=== PATIENT | male | born 1985 | race Caucasian/White ===

== ENCOUNTER 2017-02-17 16:41 | Emergency (ER) | payer OTHER, MEDICAID ==
[~2017-02-17] VITALS: Ht 182.9 cm; Wt 104.4 kg
[2017-02-17 16:49] VITALS: BP 137/83
[2017-02-17 20:05] LABS: BASOPHILS # (AUTO) 0.3 K/uL (0.00-0.22); EOSINOPHILS # (AUTO) 0.1 K/uL (0-0.4); HEMATOCRIT 45.4 % (36-52); HEMOGLOBIN 14.8 g/dL (12.0-18.0); LYMPHOCYTES # (AUTO) 2.3 K/uL (2.0-11.5); MEAN CORPUSCULAR HEMOGLOBIN 30 pg (27-31); MEAN CORPUSCULAR HGB CONC 33 g/dL (33-37); MEAN CORPUSCULAR VOLUME 93 fL (80-94); MONOCYTES # (AUTO) 0.7 K/uL (0.8-1.0); NEUTROPHILS # (AUTO) 4.5 K/uL (1.8-7.7); PLATELET COUNT (AUTO) 299 K/uL (140-450); WHITE BLOOD COUNT (AUTO) 7.9 K/uL (4.8-10.8)
--- NOTE | 2017-02-17 20:08 | NUR ---
PT TAKEN TO CT
[2017-02-17 20:14] LABS: ANION GAP 14.1 (8-16); CARBON DIOXIDE 26.1 mmol/L (21-32); CREATININE 1.2 mg/dL (0.7-1.3); POTASSIUM 4.2 mmol/L (3.5-5.1)
[2017-02-17 20:20] LABS: ALBUMIN 4.5 g/dL (3.4-5.0); TOTAL BILIRUBIN 0.3 mg/dL (0.0-1.0)
--- NOTE | 2017-02-17 20:52 | NUR ---
PT TAKEN TO BED 7
--- NOTE | 2017-02-17 20:54 | NUR ---
31Y M BIB SELF C/O GENERALIZED ABOMINAL PAIN X TODAY---SEVERE NAUSEA, WATERY STOOL ---NO EMESIS. PT STATES IT STARTED THIS MORNING PAIN 6/10, RADIATING TO BILAT LOWER BACK. PT AAOX4. BREATHING IS UNLABORED AND CLEAR BILAT. HX----COLON RESECTION 2010, HTN, SCHIZOPHRENIA, ANXIETY RX----DEPAKOTE,
--- NOTE | 2017-02-17 20:55 | NUR ---
Dr. Taylor evaluating patient at bedside.
[2017-02-17] MEDS ORDERED: DICYCLOMINE 20 MG/2 ML VIAL IM ONE (21:00)
[2017-02-17] MEDS ORDERED: MAGNESIUM CITRATE 300 ML BTL PO ONE (21:15)
[2017-02-17 21:27] VITALS: BP 122/79
--- NOTE | 2017-02-17 21:27 | NUR ---
Patient discharged with v/s stable. Written and verbal after care instructions given and explained. Patient alert, oriented and verbalized understanding of instructions. Ambulatory with steady gait. All questions addressed prior to discharge. ID band removed. Patient advised to follow up with PMD. Rx of BENTYL 20MG AND MIRALAX given. Patient educated on indication of medication including possible reaction and side effects. Opportunity to ask questions provided and answered.
== END 2017-02-17 21:27 | disposition home or self-care (01) ==
LOC: MED 16:41
DX: K59.00 Constipation, unspecified (principal); I10 Essential (primary) hypertension; Z91.041 Radiographic dye allergy status; Z88.6 Allergy status to analgesic agent; F17.210 Nicotine dependence, cigarettes, uncomplicated; Z71.6 Tobacco abuse counseling
CPT/HCPCS: 36415; 74176; 80053; 83690; 85025; 96372; 99285; J0500

== ENCOUNTER 2022-01-11 12:44 | Inpatient (IN) | payer OTHER, MEDICAID ==
[~2022-01-11] VITALS: Ht 177.8 cm; Wt 77.1 kg
[2022-01-11 12:52] VITALS: BP 140/91
[2022-01-11] MEDS ORDERED: ONDANSETRON 4 MG/2 ML VIAL IVP ONE ×2 (14:05→17:50)
[2022-01-11] MEDS ORDERED: KETOROLAC 15 MG/ML VIAL IVP ONE (14:05)
--- NOTE | 2022-01-11 14:19 | NUR ---
PT AMBULATED TO ER BED 7
--- NOTE | 2022-01-11 14:20 | NUR ---
PT TAKEN TO US VIA W/C
[2022-01-11] MEDS ORDERED: MORPHINE SULFATE 4 MG/ML SYR IVP ONE (14:55)
--- NOTE | 2022-01-11 14:55 | NUR ---
DR KIMBALL AT BEDSIDE EVALUATING PT, EXPLAINING PLAN OF CARE
[2022-01-11] MEDS ORDERED: fentaNYL citrate 0.05 MG/ML VIAL IVP ONE (15:00)
[2022-01-11] MEDS ORDERED: KETOROLAC 15 MG/ML VIAL ONE (15:14)
[2022-01-11] MEDS ORDERED: ONDANSETRON 4 MG/2 ML VIAL ONE (15:14)
--- NOTE | 2022-01-11 15:29 | NUR ---
DR SINGLETON AT BEDSIDE. PT HAS A SM BOWEL OBSTRUCTION
--- NOTE | 2022-01-11 15:39 | NUR ---
36YR OLD MALE C/O ABD PAIN SINCE 12/25. WAS SEEN LAST WEEK AT [facility]. PT STATES HAVING R SIDED ABD PAIN RADIATES TO R LOWER BACK PAIN. ULTRSOUND DONE AT BEDSIDE. 20G IV CATH STARTED L AC. PT A&OX4 PT IN GOWN. SIDE RAILS UP X2 BED AT LOWEST POSITION. IODINE TORADOL MORPHINE LORATAP
[2022-01-11 16:01] LABS: BASOPHILS % (AUTO) 0.7 % (0.0-2.0); EOSINOPHILS # (AUTO) 0.1 K/uL (0-0.4); EOSINOPHILS % (AUTO) 0.9 % (0.0-4.0); HEMATOCRIT 39.9 % (36-52); HEMOGLOBIN 13.5 g/dL (12.0-18.0); LYMPHOCYTES # (AUTO) 1.5 K/uL (2.0-11.5); LYMPHOCYTES % (AUTO) 21.8 % (20.5-51.1); MEAN CORPUSCULAR HEMOGLOBIN 32 pg (27-31); MEAN CORPUSCULAR HGB CONC 34 g/dL (33-37); MEAN CORPUSCULAR VOLUME 94.1 fL (80-94); MONOCYTES # (AUTO) 0.6 K/uL (0.8-1.0); MONOCYTES % (AUTO) 8.8 % (1.7-9.3); NEUTROPHILS # (AUTO) 4.7 K/uL (1.8-7.7); NEUTROPHILS % (AUTO) 67.8 % (42.2-75.2); PLATELET COUNT (AUTO) 448 K/uL (140-450); RED BLOOD CELL COUNT(AUTO) 4.24 MIL/uL (4.20-6.10); RED CELL DISTRIBUTION WIDTH 13.6 % (11.6-13.7)
--- NOTE | 2022-01-11 16:37 | NUR ---
PT IN BED RESTING . XRAY AT BEDSIDE. RESP EVEN AND UNLABORED
[2022-01-11 16:38] LABS: ANION GAP 13.8 (8-16); CARBON DIOXIDE 25.4 mmol/L (21-32); CREATININE 0.8 mg/dL (0.6-1.3); POTASSIUM 4.2 mmol/L (3.5-5.1)
[2022-01-11] MEDS ORDERED: HYDROmorphone PFS 2 MG/ML SYR IVP ONE (17:30)
--- NOTE | 2022-01-11 17:33 | NUR ---
PATIENT UNAWARE OF MEDS TAKEN DAILY. WAS GIVEN PERMISSION FROM PATIENT TO CONTACT RJ FROM THE PRISON AND REQUEST HIS THE MEDICIANS AND DOSAGE
[2022-01-11 17:38] LABS: TOTAL BILIRUBIN 0.2 mg/dL (0.0-1.0)
[2022-01-11 17:54] LABS: APPEARANCE,URINE CLEAR (CLEAR); BILIRUBIN,URINE NEGATIVE (NEGATIVE); BLOOD, URINE NEGATIVE (NEGATIVE); COLOR,URINE YELLOW (YELLOW); LEUKOCYTE ESTERASE ,URINE NEGATIVE (NEGATIVE); NITRITE, URINE NEGATIVE (NEGATIVE); UGLUCOSE NEGATIVE (NEGATIVE)
[2022-01-11] MEDS ORDERED: guaiFENesin DM 200/20 MG-10 ML 10 ML UDC PO PRN (18:20)
[2022-01-11] MEDS ORDERED: MORPHINE SULFATE 2 MG/ML SYR IVP PRN (18:20)
[2022-01-11] MEDS ORDERED: DOCUSATE SODIUM 100 MG GELCAP PO PRN (18:20)
[2022-01-11] MEDS ORDERED: POTASSIUM CHLORIDE 40 MEQ, LIDOCAINE MPF 1% 25 MG in NACL 0.9% 250 ML IV PRN (18:20)
[2022-01-11] MEDS ORDERED: ZOLPIDEM 5 MG TAB PO PRN (18:20)
[2022-01-11] MEDS ORDERED: GABA400C PO (18:58)
[2022-01-11] MEDS ORDERED: RISP0.5T3 PO (18:59)
[2022-01-11] MEDS ORDERED: NAPR-1704 PO (19:00)
[2022-01-11] MEDS ORDERED: QUET100T PO (19:01)
[2022-01-11] MEDS ORDERED: TRAZ-471 PO (19:02)
[2022-01-11] MEDS ORDERED: ESK300 PO (19:03)
[2022-01-11] MEDS ORDERED: PRED20TA5 PO (19:04)
[2022-01-11] MEDS ORDERED: ATOR40TA PO (19:05)
--- NOTE | 2022-01-11 19:05 | NUR ---
MED RECONCILE AND COVID SWAB COMPLETED
[2022-01-11 19:48] LABS: AMYLASE 86 U/L (25-115); CHOL/HDL RATIO 2.3 (1-4.5); FREE T4 (FREE THYROXINE) 0.79 ng/dL (0.76-1.46); HDL CHOLESTEROL 40 mg/dL (40-60); LDL (CALC) 43 mg/dL (60-100); MAGNESIUM 1.8 mg/dL (1.8-2.4); PHOSPHORUS 5.4 mg/dL (2.5-4.9); THYROID STIMULATING HORMONE 2.45 uIU/mL (0.34-3.74); TRIGLYCERIDES 49 mg/dL (30-150)
--- NOTE | 2022-01-11 21:00 | NUR ---
Patient appears to be resting comfortably in bed. Vital Signs within normal limits. Respirations even and unlabored.
[2022-01-11] MEDS: DEXT 5% /NACL 0.9% 1,000 ML IV SCH (21:31)
[2022-01-11] MEDS: HYDROmorphone 1 MG/ML AMP IVP PRN (21:41)
--- NOTE | 2022-01-11 22:03 | NUR ---
PT EXPRESSED SOB WITH 02 95% RA, PLACED ON 2L NC, PATIEND EXPRESSED IMPROVEMENT 02 97%
--- NOTE | 2022-01-11 22:07 | NUR ---
PATIENT GIVEN DILAUDID 1MG FOR ABD PAIN 01/05, PATIENT HAS INCREASED ACTIVITY AND VERY TALKITIVE AFTER MEDICATION ADMINISTRATION.
--- NOTE | 2022-01-11 22:13 | NUR ---
XRAY AT BEDSIDE
[2022-01-11] MEDS ORDERED: DIAZEPAM PFS 10 MG/2 ML SYR IVP ONE ×2 (22:55→23:10)
--- NOTE | 2022-01-11 23:47 | NUR ---
PT EXPRESSED HE COULD NOT SLEEP. PT GIVEN DIAZAPAM
--- NOTE | 2022-01-11 23:56 | NUR ---
PT NOW RESTING COMFORTABLY. VS STABLE. VISABLE RISE AND FALL OF CHEST, NO LABORED BREATING
--- NOTE | 2022-01-12 | NUR ---
PT AWAKE C/O OF NOT BEING ABLE TO SLEEP
--- NOTE | 2022-01-12 01:30 | NUR ---
PT RESTING IN BED TALKING ON THE PHONE
--- NOTE | 2022-01-12 04:00 | NUR ---
RECEIVED PT IN ER BED 7. PT A/O X4, C/O 10/10 PAIN AND REQUESTING MORE PAIN MEDICATION. PT WAS MEDICATED WITH AMBIEN PRIOR TO MY ARRIVAL. PT ATTACHED TO AEGIS OPERATIONS SPECIALIST, VSS. WILL MEDICATE PER PRN ORDERS.
[2022-01-12] MEDS: DEXT 5% /NACL 0.9% 1,000 ML IV SCH ×3 (04:03→19:53)
[2022-01-12 04:26] LABS: PROTHROMBIN TIME 13.1 secs (10.8-13.4)
[2022-01-12] MEDS: HYDROmorphone 1 MG/ML AMP IVP PRN ×3 (05:37→19:47)
[2022-01-12 07:25] LABS: BASOPHILS # (AUTO) 0.1 K/uL (0.00-0.22); BASOPHILS % (AUTO) 1.2 % (0.0-2.0); EOSINOPHILS # (AUTO) 0.1 K/uL (0-0.4); EOSINOPHILS % (AUTO) 2.8 % (0.0-4.0); HEMATOCRIT 38.5 % (36-52); HEMOGLOBIN 13.1 g/dL (12.0-18.0); LYMPHOCYTES # (AUTO) 1.8 K/uL (2.0-11.5); LYMPHOCYTES % (AUTO) 37.2 % (20.5-51.1); MEAN CORPUSCULAR HEMOGLOBIN 32 pg (27-31); MEAN CORPUSCULAR HGB CONC 34 g/dL (33-37); MEAN CORPUSCULAR VOLUME 93.7 fL (80-94); MONOCYTES # (AUTO) 0.5 K/uL (0.8-1.0); MONOCYTES % (AUTO) 10.5 % (1.7-9.3); NEUTROPHILS # (AUTO) 2.3 K/uL (1.8-7.7); NEUTROPHILS % (AUTO) 48.3 % (42.2-75.2); PLATELET COUNT (AUTO) 384 K/uL (140-450); RED BLOOD CELL COUNT(AUTO) 4.11 MIL/uL (4.20-6.10); RED CELL DISTRIBUTION WIDTH 13.7 % (11.6-13.7); WHITE BLOOD COUNT (AUTO) 4.7 K/uL (4.8-10.8)
[2022-01-12 08:05] LABS: ANION GAP 13.9 (8-16); CARBON DIOXIDE 25.4 mmol/L (21-32); CREATININE 0.9 mg/dL (0.6-1.3); POTASSIUM 4.3 mmol/L (3.5-5.1)
--- NOTE | 2022-01-12 08:24 | NUR ---
36YR OLD MALE C/O ABD PAIN SINCE 12/25. SEEN HERE YESTERDAY ON A TELE HOLD. PENDING BED ASSIG. PT IS A&OX4. PT IS STATING PAIN 04/07. DILUAD Q3 NO PAIN MEDS SCHEDULED AT THIS TIME. PT IS VERBALLY EXPRESSIVE TO STAFF ON MULTIPLE SUBJECTS OTHER THAN HIS C/O. ON BEDSIDE MONITOR . PT IS NPO. 20G L AC. BEDRAILS UP X1 BED AT LOWEST POSITION
--- NOTE | 2022-01-12 11:45 | NUR ---
DR BINGHAM SPOKE WITH PATIENT AT BEDSIDE. ON A CLEAR LIQUID DIET . PT TOLERATED 240CC OF CRANBERRY JUICE. PT IS RESTING ON MONITOR. PENDING DC HOME
--- NOTE | 2022-01-12 17:43 | NUR ---
PT IS SLEEPING . RESP EVEN AND UNLABORED. PENDING BED STATUS.
[2022-01-12] MEDS: ONDANSETRON 4 MG/2 ML VIAL IM/IVP PRN (19:53)
--- NOTE | 2022-01-12 19:56 | NUR ---
PT C/O PAIN AND NAUSEA. PT STATES PAIN 10/10. PT HOOKED UP TO MONITOR. CHARGE NURSE TO GIVE ZOFRAN AND PAIN MEDS IV. WILL CONTINUE TO MONITOR
--- NOTE | 2022-01-12 21:07 | NUR ---
pt sleeping comfortably. x2 side rails up
--- NOTE | 2022-01-12 22:22 | NUR ---
Patient will be admitted to care of DR. BINGHAM . Admited to TELE. Will go to room 111 B. Belongings list completed. Report to LASHAE.
--- NOTE | 2022-01-12 22:25 | NUR ---
RECEIVED PATIENT FROM EMERGENCY DEPARTMENT, ADMITTED TO THE UNIT VIA GURNEY. AWAKE, ALERT AND VERBALLY RESPONSIVE. SKIN INTACT, DRY AND WARM. BILATERAL LUNGS SOUND CLEAR. PATIENT DENIED OF SHORTNESS OF BREATHING. IV SALINE LOCK PRESENT AT LEFT AC, INTACT AND PATENT. NO SIGN/SYMPTOM OF SWELLING OR REDNESS ON SKIN SURROUNDING IV SALINE LOCK. PATIENT IS ON CLEAR LIQUID DIET. PATIENT DENIED OF PAIN AT THIS TIME, NO FACIAL GRIMACING. PLACE PATIENT AND ORIENT HIM TO SURROUNDING ROOM.
[2022-01-13] VITALS: BP 110/69
[2022-01-13] MEDS: HYDROmorphone 1 MG/ML AMP IVP PRN ×3 (03:23→19:00)
--- NOTE | 2022-01-13 03:23 | NUR ---
PT COMPLAINTS OF ABDOMINAL PAIN OF 8/10, PAIN MEDICATION, DILAUDID, ADMINISTERED ORDERED.
[2022-01-13] MEDS: DEXT 5% /NACL 0.9% 1,000 ML IV SCH ×3 (03:40→17:45)
[2022-01-13 04:00] VITALS: BP 110/69
--- NOTE | 2022-01-13 04:23 | NUR ---
PT IS ASLEEP, NO FACIAL GRIMACING.
--- NOTE | 2022-01-13 06:26 | NUR ---
The patient's care was reviewed and supervised by Sena Goddard RN.
[2022-01-13 07:07] LABS: BASOPHILS % (AUTO) 0.6 % (0.0-2.0); EOSINOPHILS # (AUTO) 0.2 K/uL (0-0.4); EOSINOPHILS % (AUTO) 3.3 % (0.0-4.0); HEMATOCRIT 37.5 % (36-52); HEMOGLOBIN 12.6 g/dL (12.0-18.0); LYMPHOCYTES # (AUTO) 1.8 K/uL (2.0-11.5); LYMPHOCYTES % (AUTO) 35.2 % (20.5-51.1); MEAN CORPUSCULAR HEMOGLOBIN 32 pg (27-31); MEAN CORPUSCULAR HGB CONC 34 g/dL (33-37); MEAN CORPUSCULAR VOLUME 93.5 fL (80-94); MONOCYTES # (AUTO) 0.5 K/uL (0.8-1.0); MONOCYTES % (AUTO) 9.5 % (1.7-9.3); NEUTROPHILS # (AUTO) 2.7 K/uL (1.8-7.7); NEUTROPHILS % (AUTO) 51.4 % (42.2-75.2); PLATELET COUNT (AUTO) 373 K/uL (140-450); RED CELL DISTRIBUTION WIDTH 13.3 % (11.6-13.7); WHITE BLOOD COUNT (AUTO) 5.2 K/uL (4.8-10.8)
[2022-01-13 07:14] LABS: ANION GAP 11.3 (8-16); CARBON DIOXIDE 26.6 mmol/L (21-32); CREATININE 0.7 mg/dL (0.6-1.3); POTASSIUM 3.9 mmol/L (3.5-5.1)
--- NOTE | 2022-01-13 07:20 | NUR ---
IV FLUID IS INTACT AND PATENT, NO SIGN/SYMPTOM OF INFECTION.
--- NOTE | 2022-01-13 07:20 | NUR ---
PT IS ON STABLE CONDITION. ENDORSED TO DAY SHIFT NURSE FOR CONTINUITY OF PT CARE.
--- NOTE | 2022-01-13 07:25 | NUR ---
RECEIVED REPORT FROM NEWSPAPER SUBSCRIPTION SOLICITOR NURSE FOR CONTINUITY OF CARE. PATIENT ASLEEP NO DISTRESS NOTED ON ROOM AIR. IV ON LEFT AC CONNIE 20 RUNNING D5NS AT 120 CC/HOUR NO FLUID OVER LOAD NOTED. ALL SAFETY MEASURE IN PLACE.
[2022-01-13 08:00] VITALS: BP 110/78
--- NOTE | 2022-01-13 08:39 | NUR ---
IVF IS DONE. HANG NEW IV FLUID PATIENT ALERT REFUSED TO EAT DIET ORDER.
--- NOTE | 2022-01-13 08:44 | NUR ---
PATIENT HAS BEEN SCREENED AND CATEGORIZED HIGH NUTRITION RISK. PATIENT WILL BE SEEN WITHIN 1-2 DAYS OF ADMISSION. 01/13/[address]
--- NOTE | 2022-01-13 08:44 | NUR ---
DR. BINGHAM AT BED SIDE.
--- NOTE | 2022-01-13 11:20 | NUR ---
REESE HWANG CHIEF PASSENGER SHIP STEWARD/STEWARDESS OF [facility] FOR PATIENT CALLED REGARDING PATIENT CONDITION GIVE INSTRUCTION THAT IF PATIENT IS GOING TO HAVE ANY SURGURY WE NEED TO CONTACT MARK HWANG SOCIAL RAILCAR SWITCHER FOR PATIENT.
[2022-01-13 12:00] VITALS: BP 100/72
--- NOTE | 2022-01-13 12:28 | NUR ---
RIGHT AC IV SITED INFILTRATED ARM SWELLING. REMOVE IV AND INSERT ON RIGHT FOREARM CONNIE 22 X1 ATTEMPT. TOLERATED WELL.
--- NOTE | 2022-01-13 13:57 | NUR ---
PATIENT IS COMPLAIN OF BLURRED VISION BUT WHEN I GO THERE HE SAID ITS BECAUSE HE DON'T TAKE HIS HOME MEDICATION AND WANT DOCTOR TO RESUME IT. LEFT MESSAGE TO DR. BINGHAM.
--- NOTE | 2022-01-13 14:25 | NUR ---
PATIENT IS COMPLAINING FOR NAUSEA INFORM RN.
[2022-01-13] MEDS: ONDANSETRON 4 MG/2 ML VIAL IM/IVP PRN ×2 (14:34→19:59)
--- NOTE | 2022-01-13 14:55 | NUR ---
DC PLANNING: THE PATIENT PRESENTED WITH C/O ABDOMINAL PAIN WITH N/V. HE RESIDES AT [facility] IN [place] AND HAS BEEN THERE FOR A FEW MONTHS. H/O HTN, PATIENT ALSO STATES HE IS SCHIZOPHRENIC WITH PARANOIA. PATIENT ALSO HAS A H/O RECURRENT SBO AND HAD A SURGICAL CONSULT IN THE ED. CT ABD/PELVIS CONFIRMS SBO WITH DILATED SMALL BOWEL LOOPS, DR SINGLETON RECOMMENDS CONSERVATIVE RX, NPO AND IVF'S, SMALL BOWEL SERIES. ORDERS TO ADVANCE DIET TO CL LIQUID. DALILA SPOKE WITH THE PATIENT AT BEDSIDE AND CONFIRMED THE NAME AND ADDRESS OF HIS CORRECTION. HE HAS BEEN THERE FOR A FEW MONTHS AND HAS BEEN AT MULTIPLE GROUP HOMES IN THE PAST. THERE ARE TWO ADMINISTRATORS, [facility] ([phone]) AND [facility] ([phone]). EITHER CAN BE CALLED FOR TRANSPORT WHEN PATIENT IS STABLE FOR DISCHARGE. THE PATIENT IS INDEPENDENT IN ALL ACTIVITIES AND STATES HE AMBULATES INSIDE OF THE HOME AND IN THE YARD. HE SEES DR CAVAZOS FOR PSYCHIATRIC MANAGEMENT AND SEES HIS PMD DR RODRIGUEZ EVERY 2-3 MONTHS. HIS [facility] CENTER WORKER IS MARK HWANG ([phone]). THE PATIENT WILL RETURN TO HIS [facility] WHEN CLINICALLY STABLE, CM WILL FOLLOW FOR NEEDS. Addendum: 01/14/22 at 1113 by Keke Laguna CM DC PLANNING: PATIENT TO DC TO [facility] TODAY PER ATTENDING DALILA CONDE ENDORSED TO PATIENT NURSE CAROLINA TO CALL THE NUMBERS LISTED IN DALILA'S NOTES FOR THE ADMINISTRATORS TO SET UP TRANSPORT. CM WILL FOLLOW.
--- NOTE | 2022-01-13 15:54 | NUR ---
01/13/22 RD INITIAL ASSESSMENT COMPLETED PLEASE REFER TO NUTRITION ASSESSMENT UNDER CARE ACTIVITY FOR ESTIMATED NUTRITIONAL NEEDS. 1. CONTINUE CLEAR LIQUID DIET -WHEN/IF MEDICALLY APPROPRIATE, GRADUALLY ADVANCE TO REGULAR DIET TOLERATED 2. RECOMMEND ENSURE CLEAR TID FOR NUTRITION SUPPORT 3. RD TO FOLLOW-UP 2-3 DAYS, HIGH RISK RUDOLPH BEATTY RD
[2022-01-13 16:00] VITALS: BP 98/76
[2022-01-13] MEDS ORDERED: risperiDONE 1 MG TAB PO SCH (17:00)
[2022-01-13] MEDS ORDERED: GABAPENTIN 100 MG CAP PO SCH (17:00)
[2022-01-13 17:16] LABS: BARBITURATE, URINE NEGATIVE ng/ml (NEG <=200); BENZODIAZEPINE, URINE POSITIVE ng/mL (NEG <=200); CANNABINOID, URINE NEGATIVE ng/mL (NEG <=50); COCAINE, URINE NEGATIVE ng/mL (NEG <=300); OPIATE, URINE POSITIVE ng/mL (NEG <=2000); PHENCYCLIDINE SCREEN,URINE NEGATIVE ng/mL (NEG <=25)
[2022-01-13] MEDS: GABAPENTIN 300 MG CAP PO SCH (17:39)
[2022-01-13] MEDS: GABAPENTIN 100 MG CAP PO SCH (17:40)
--- NOTE | 2022-01-13 19:40 | NUR ---
GAVE REPORT TO HYDRAULIC SPECIALIST NURSE FOR CONTINUITY OF CARE. PATIENT AWAKE NO DISTRESS NOTED.
--- NOTE | 2022-01-13 19:45 | NUR ---
RECEIVED BEDSIDE REPORT FROM DAY SHIFT RN FOR CONTINUITY OF CARE. PT IS AWAKE IN BED. PT IS ALERT AND ORIENTATED. PT HAS RIGHT FOREARM 22 GAUGE WITH D5% NS 120 CC/HR. PT STATED HE HAD A BM TODAY. PT COMPLAINING OF NAUSEA. WILL MEDICATE PER MD ORDER. PT STATES OF FEELING DIZZINESS. EDUCATED PT TO CALL FOR HELP IF AMBULATING TO THE RESTROOM. PLAN OF CARE DISCUSSED. WILL CONTINUE TO OBSERVE THE PT.
[2022-01-13 20:00] VITALS: BP 118/75
[2022-01-13] MEDS ORDERED: traZODone 50 MG TAB PO SCH (21:00)
[2022-01-13] MEDS ORDERED: ATORVASTATIN 20 MG TAB PO SCH (21:00)
[2022-01-13] MEDS ORDERED: QUEtiapine FUMARATE 100 MG TAB PO SCH (21:00)
--- NOTE | 2022-01-13 21:00 | NUR ---
ALL DUE MEDS GIVEN. NO ADVERSE REACTION NOTED. WILL CONTINUE TO OBSERVE PT.
--- NOTE | 2022-01-13 22:19 | NUR ---
PT COMPLAINED OF BACK PAIN 04/07. GAVE DILAUDID PRN ORDERED. NO OTHER COMPLAINS. WILL CONTINUE TO OBSERVE PT.
[2022-01-14] MEDS: HYDROmorphone 1 MG/ML AMP IVP PRN (00:43)
--- NOTE | 2022-01-14 00:57 | NUR ---
PT IS SLEEPING IN BED COMFORTABLY. PT IS NOT IN ANY ACUTE RESPIRATORY DISTRESS. IVF RUNNING PER MD ORDER. CALL LIGHT WITHIN REACH. ALL SAFETY MEASURES TAKEN. WILL CONTINUE TO MONITOR THE PT.
[2022-01-14] MEDS: DEXT 5% /NACL 0.9% 1,000 ML IV SCH ×2 (01:59→13:00)
--- NOTE | 2022-01-14 02:05 | NUR ---
CHANGED IVF FLUIDS. PT WANTED SOME ORANGE JUICE AND IT WAS GIVEN REQUESTED. NO OTHER COMPLAINS FROM THE PT. WILL CONTINUE TO OBSERVE THE PT.
[2022-01-14 04:00] VITALS: BP 99/59
--- NOTE | 2022-01-14 07:12 | NUR ---
ENDORSED PT TO DAY SHIFT LAZ FORBES FOR CONTINUITY OF CARE. PT IS STABLE.
[2022-01-14 07:18] LABS: ANION GAP 11.2 (8-16); CARBON DIOXIDE 25.7 mmol/L (21-32); CREATININE 0.7 mg/dL (0.6-1.3); POTASSIUM 3.9 mmol/L (3.5-5.1)
[2022-01-14 07:21] LABS: BASOPHILS % (AUTO) 0.8 % (0.0-2.0); EOSINOPHILS # (AUTO) 0.1 K/uL (0-0.4); EOSINOPHILS % (AUTO) 2.8 % (0.0-4.0); HEMATOCRIT 36.5 % (36-52); HEMOGLOBIN 12.5 g/dL (12.0-18.0); LYMPHOCYTES # (AUTO) 2.1 K/uL (2.0-11.5); LYMPHOCYTES % (AUTO) 45.3 % (20.5-51.1); MEAN CORPUSCULAR HEMOGLOBIN 32 pg (27-31); MEAN CORPUSCULAR HGB CONC 34 g/dL (33-37); MEAN CORPUSCULAR VOLUME 92.6 fL (80-94); MONOCYTES # (AUTO) 0.5 K/uL (0.8-1.0); MONOCYTES % (AUTO) 10.7 % (1.7-9.3); NEUTROPHILS # (AUTO) 1.8 K/uL (1.8-7.7); NEUTROPHILS % (AUTO) 40.4 % (42.2-75.2); PLATELET COUNT (AUTO) 355 K/uL (140-450); RED BLOOD CELL COUNT(AUTO) 3.94 MIL/uL (4.20-6.10); WHITE BLOOD COUNT (AUTO) 4.5 K/uL (4.8-10.8)
[2022-01-14 08:00] VITALS: BP 104/53
--- NOTE | 2022-01-14 08:16 | NUR ---
RECEIVE ENDORSEMENT FROM PM SHIFT NURSE WHILE PATIENT IS REST IN BED, PIV R.FOREARM 22G IV D5NS@120ML/HR INFUSING. WILL CONTINUE TO MONITOR
[2022-01-14] MEDS: GABAPENTIN 300 MG CAP PO SCH ×2 (09:09→13:00)
[2022-01-14] MEDS: GABAPENTIN 100 MG CAP PO SCH ×2 (09:10→13:00)
[2022-01-14] MEDS ORDERED: NAPR-1704 PO (12:06)
[2022-01-14] MEDS ORDERED: METO-485 PO (12:06)
[2022-01-14 12:09] VITALS: BP 151/74
--- NOTE | 2022-01-14 14:20 | NUR ---
CALL PATIENT'S FRIEND, SWAPNIL, . IJ AGREE TO COME SEWER CONTRACTOR PATIENT. PATIENT STABLE, CONSENT SIGNED, IV ACCESS & ARM BAND REMOVED.
--- NOTE | 2022-01-14 15:18 | NUR ---
PATIENT'S FRIEND HERE AND HOUSE CALLS NURSE PRACTITIONER PATIENT NOW.
[2022-01-14] MEDS ORDERED: LITHIUM CARBONATE 300 MG TAB PO SCH (21:00)
== END 2022-01-14 15:00 | disposition home or self-care (01) | DRG 390 ==
LOC: MED 12:44 → MTU 17:49
PROVIDERS: ADMIT Family Medicine; ATTEND Family Medicine
DX: K56.609 Unspecified intestinal obstruction, unspecified as to partial versus complete obstruction (principal); E86.0 Dehydration; I10 Essential (primary) hypertension; Z20.822 Contact with and (suspected) exposure to COVID-19; F10.10 Alcohol abuse, uncomplicated; Y90.9 Presence of alcohol in blood, level not specified; K70.30 Alcoholic cirrhosis of liver without ascites; Z88.5 Allergy status to narcotic agent; Z88.8 Allergy status to other drugs, medicaments and biological substances; Z88.6 Allergy status to analgesic agent; Z91.041 Radiographic dye allergy status; Z79.899 Other long term (current) drug therapy; Z90.49 Acquired absence of other specified parts of digestive tract
CPT/HCPCS: 36415; 71045; 74250; 76705; 80048; 80053; 80178; 80305; 81003; 82150; 83036; 83690; 83735; 83880; 84100; 84436; 84439; 84443; 84479; 84484; 85025; 85610; 85730; 87081; 93005; 96374; 96375; 99285; J1170; J1885; J2270; J2405; J3010; J3360; Q0092

== ENCOUNTER 2022-03-17 18:02 | Inpatient (IN) | payer OTHER, MEDICAID ==
[~2022-03-17] VITALS: Ht 185.4 cm; Wt 87.1 kg
[~2022-03-17 18:02] MED LIST: ATOR40TA PO; ESK300 PO; GABA400C PO; METO-485 PO; NAPR-1704 PO; PRED20TA5 PO; QUET100T PO; RISP0.5T3 PO; TRAZ-471 PO
[2022-03-17 18:24] VITALS: BP 112/72
--- NOTE | 2022-03-17 18:33 | NUR ---
AT BEDSIDE, GEORGE FOR LOBBY. PT TO WAIT IN ED LOBBY FOR BED.
[2022-03-17 19:43] LABS: BASOPHILS # (AUTO) 0.1 K/uL (0.00-0.22); BASOPHILS % (AUTO) 0.7 % (0.0-2.0); EOSINOPHILS # (AUTO) 0.2 K/uL (0-0.4); EOSINOPHILS % (AUTO) 2.8 % (0.0-4.0); HEMATOCRIT 48.1 % (36-52); HEMOGLOBIN 16.1 g/dL (12.0-18.0); LYMPHOCYTES # (AUTO) 1.9 K/uL (2.0-11.5); LYMPHOCYTES % (AUTO) 24.3 % (20.5-51.1); MEAN CORPUSCULAR HEMOGLOBIN 32 pg (27-31); MEAN CORPUSCULAR HGB CONC 34 g/dL (33-37); MEAN CORPUSCULAR VOLUME 93.9 fL (80-94); MONOCYTES # (AUTO) 0.9 K/uL (0.8-1.0); MONOCYTES % (AUTO) 11.4 % (1.7-9.3); NEUTROPHILS # (AUTO) 4.8 K/uL (1.8-7.7); NEUTROPHILS % (AUTO) 60.8 % (42.2-75.2); PLATELET COUNT (AUTO) 295 K/uL (140-450); RED BLOOD CELL COUNT(AUTO) 5.12 MIL/uL (4.20-6.10); RED CELL DISTRIBUTION WIDTH 14.7 % (11.6-13.7); WHITE BLOOD COUNT (AUTO) 7.8 K/uL (4.8-10.8)
[2022-03-17 20:09] LABS: ALBUMIN 4.5 g/dL (3.4-5.0); ASPARTATE AMINOTRANSFERASE 12 U/L (15-37); CARBON DIOXIDE 18.9 mmol/L (21-32); CHLORIDE 106 mmol/L (98-107); CREATININE 1.5 mg/dL (0.6-1.3); GFR ARICAN-AMERICAN 68 mL/min (>90); GLUCOSE 131 mg/dL (74-106); POTASSIUM 4.9 mmol/L (3.5-5.1); SODIUM SERUM 140 mmol/L (136-145); TOTAL BILIRUBIN 0.4 mg/dL (0.0-1.0); UREA NITROGEN, BLOOD 23 mg/dL (7-18)
[2022-03-17] MEDS ORDERED: NACL 0.9% 1,000 ML IV ONE (21:30)
--- NOTE | 2022-03-18 01:41 | NUR ---
COVID SWAB COLLECTED AND SENT TO LAB
--- NOTE | 2022-03-18 02:49 | NUR ---
36YR OLD MALE C/O PALPATIONS DENIES SOB CP AND DRUG USE. PT ON BEDSIDE KILN STOKER. 20GIV CATH PLACED IN L FOREARM. PT IS RESTING HOB ELEVATED. RESP EVEN AND UNLABORED. SKIN WARM DRY AND INTACT. SIDE RAILS UP X2 BED AT LOWEST POSITION. ACETAMINOPHEN HYDROCODONE IODINE SM BOWEL OBSTRUCTION ANXIETY DEPRESSION
--- NOTE | 2022-03-18 03:31 | NUR ---
PATIENT ASLEEP . ON BEDSIDE CARIDAC MONITOR. RESP EVEN AND UNLABORED. NO DISTRESS NOTED. PENDING BED AVAIL FOR TELE.
--- NOTE | 2022-03-18 03:32 | NUR ---
PATIENT ASLEEP . ON BEDSIDE CARIDAC MONITOR. RESP EVEN AND UNLABORED. NO DISTRESS NOTED. PENDING BED AVAIL FOR TELE.
[2022-03-18 09:30] VITALS: BP 127/79
--- NOTE | 2022-03-18 09:30 | NUR ---
0730: COMPUTER SYSTEM DOWN. RECEIVED REPORT FROM ROLLER INSPECTOR AND MENDER. PT A/O X4. ABLE TO MAKE NEEDS KNOWN. TELE, SR. NO SOB OR RESPIRATORY DISTRESS. ON RA. LFA #22 SL. SKIN INTACT. MRSA OF NARES TAKEN AND SENT TO LAB. EXPLAINED TO PT OF COMPUTER SYSTEM BEING DOWN AND ORIENTED PT TO ROOM. PT VERBALIZED UNDERSTANDING. ALL NEEDS MET. ALL SAFETY MEASURES IN PLACE.
[2022-03-18] MEDS ORDERED: NITROGLYCERIN 0.4 MG TAB SL PRN (10:00)
[2022-03-18] MEDS ORDERED: guaiFENesin DM 200/20 MG-10 ML 10 ML UDC PO PRN (10:00)
[2022-03-18] MEDS ORDERED: DOCUSATE SODIUM 100 MG GELCAP PO PRN (10:00)
[2022-03-18] MEDS ORDERED: POTASSIUM CHLORIDE 10 MEQ TABER PO PRN (10:00)
[2022-03-18] MEDS ORDERED: ONDANSETRON 4 MG/2 ML VIAL IM/IVP PRN (10:00)
--- NOTE | 2022-03-18 10:17 | NUR ---
PATIENT HAS BEEN SCREENED AND CATEGORIZED LOW NUTRITION RISK. PATIENT WILL BE SEEN WITHIN 7 DAYS OF ADMISSION. 03/25/[address]
--- NOTE | 2022-03-18 10:30 | NUR ---
CONTACTED WINDOWS APPLICATION ADMINISTRATOR AND CHARGE NURSE REGARDING NO IV PUMP. WINDOWS APPLICATION ADMINISTRATOR STATES WILL DELIVER. AWAITING IV PUMP.
--- NOTE | 2022-03-18 11:00 | NUR ---
DRUG SCREEN/UA SENT TO LAB.
[2022-03-18 12:00] VITALS: BP 104/65
[2022-03-18] MEDS: NACL 0.9% 1,000 ML IV SCH (12:00)
[2022-03-18 12:29] LABS: PROTHROMBIN TIME 10.9 secs (10.8-13.4)
[2022-03-18 12:48] LABS: FREE T4 (FREE THYROXINE) 0.81 ng/dL (0.76-1.46); MAGNESIUM 1.6 mg/dL (1.8-2.4); PHOSPHORUS 4.3 mg/dL (2.5-4.9); THYROID STIMULATING HORMONE 1.08 uIU/mL (0.34-3.74)
[2022-03-18] MEDS: GABAPENTIN 100 MG CAP PO SCH ×2 (13:09→16:52)
[2022-03-18 13:12] LABS: APPEARANCE,URINE SL CLOUDY (CLEAR); BILIRUBIN,URINE NEGATIVE (NEGATIVE); BLOOD, URINE NEGATIVE (NEGATIVE); COLOR,URINE YELLOW (YELLOW); LEUKOCYTE ESTERASE ,URINE NEGATIVE (NEGATIVE); NITRITE, URINE NEGATIVE (NEGATIVE); UGLUCOSE NEGATIVE (NEGATIVE)
[2022-03-18 13:21] LABS: BARBITURATE, URINE NEGATIVE ng/ml (NEG <=200); BENZODIAZEPINE, URINE NEGATIVE ng/mL (NEG <=200); CANNABINOID, URINE POSITIVE ng/mL (NEG <=50); COCAINE, URINE NEGATIVE ng/mL (NEG <=300); OPIATE, URINE NEGATIVE ng/mL (NEG <=2000); PHENCYCLIDINE SCREEN,URINE NEGATIVE ng/mL (NEG <=25)
--- NOTE | 2022-03-18 14:50 | NUR ---
CONTACTED MD REGARDING PT C/O NUMBNESS AND TINGLING ON L SIDE OF BODY. NO FACIAL DROOPING NOTED. DEPTH PERCEPTION INTACT. PUPILS PERRLA. 3MM. NO SLURRING. PT STATES, "THIS HAPPENS TO ME WHEN I'M IN A LOT OF PAIN". PT ALSO STATES, "IT HAPPENED TO ME BEFORE ON MY RIGHT SIDE BEFORE AND IT WENT AWAY". CONTACTED OF [facility]. AWAITING MD RESPONSE. Addendum: 03/18/22 at 1816 by Agency 05 LAZ RN CONTACTED MD REGARDING PT C/O NUMBNESS AND TINGLING ON L SIDE OF BODY. PT STATES HIS LEFT HAND IS "CLENCHED AND WILL NOT OPEN". PT NOTED WITH L HAND CLOSED FIST. PULSES STRONG, BILATERALLY EQUAL. NO FACIAL DROOPING NOTED. DEPTH PERCEPTION INTACT. PUPILS PERRLA. 3MM. NO SLURRING. PT STATES, "THIS HAPPENS TO ME WHEN I'M IN A LOT OF PAIN". PT ALSO STATES, "IT HAPPENED TO ME BEFORE ON MY RIGHT SIDE BEFORE AND IT WENT AWAY". CONTACTED OF [facility]. AWAITING MD RESPONSE.
[2022-03-18 16:00] VITALS: BP 103/70
[2022-03-18] MEDS: risperiDONE 1 MG TAB PO SCH (16:52)
[2022-03-18] MEDS ORDERED: ATORVASTATIN 20 MG TAB PO SCH (17:00)
--- NOTE | 2022-03-18 17:45 | NUR ---
ELECTRIC MOTOR AND GENERATOR ASSEMBLER AT BEDSIDE. PT STATES, "LOOK, I CAN OPEN MY HAND". PT STATES RELIEF OF SCHEDULED GABAPENTIN. NO NUMBNESS OR TINGLING. PT RELAXED. IN NO ACUTE DISTRESS. PT STATES, "I'M HUNGRY". EXPLAINED DINNER TRAY DELIVERY TIME. PT VERBALIZED UNDERSTANDING. NEEDS ALL MET AT THIS TIME. ALL SAFETY MEASURES IN PLACE.
--- NOTE | 2022-03-18 19:27 | NUR ---
REPORT GIVEN TO NIGHTSHIFT NURSEWILBER FOR CONTINUITY OF CARE. PT STABLE WITH DINNER TRAY AT BEDSIDE.
--- NOTE | 2022-03-18 19:28 | NUR ---
RECEIVED PT TO MORNING SHIFT NURSE. PT IS AOX4, AMBULATORY, ABLE TO VERBALIZE NEEDS AND ABLE TO FOLLOW COMMANDS. PT IS ON ROOM AIR QND ON CARDIAC DIET. PT HAS IV ON LEFT FOREARM GAUGE 22 RUNNING WITH NS AT 60. PT SKIN IS INTACT. ALL SAFETY MEASURES IMPLEMENTED. BED WHEELS ON LOCKED, BED IN LOW POSITION AND CALL LIGHT WITHIN REACH.
[2022-03-18 20:00] VITALS: BP 105/67
[2022-03-18] MEDS: traZODone 50 MG TAB PO SCH (21:13)
[2022-03-18] MEDS: METOPROLOL 25 MG TAB PO SCH (21:16)
[2022-03-18] MEDS: QUEtiapine FUMARATE 100 MG TAB PO SCH (21:16)
--- NOTE | 2022-03-18 21:16 | NUR ---
ALL SCHEDULED AND PRESCRIBED MEDICATION WAS GIVEN TO PT PER MD ORDER. PT TOLERATED IT WELL. ALL SAFETY MEASURES IMPLEMENTED. BED WHEELS ON LOCKED, BED IN LOW POSITION AND CALL LIGHT WITHIN REACH.
[2022-03-18] MEDS: ZOLPIDEM 5 MG TAB PO PRN (21:23)
--- NOTE | 2022-03-18 21:23 | NUR ---
PT WAS GIVEN PRN SLEEPING MEDICATION PER PT REQUEST. PT TOLERATED IT WELL. ALL SAFETY MEASURES IMPLEMENTED. BED WHEELS ON LOCKED, BED IN LOW POSITION AND CALL LIGHT WITHIN REACH.
--- NOTE | 2022-03-18 21:47 | NUR ---
PT DENIES THAT HE IS ALLERGIC TO NORCO/MORPHINE. DR. BINGHAM ORDER NORCO 5MG Q6H PRN AND TAKE OUT THE ALLERGY TO THE SYSTEM IF THE PT DENIES IT. ORDER WAS MADE AND CARRIED OUT.
--- NOTE | 2022-03-18 23:00 | NUR ---
PT WAS ASKING FOR SNACK. EDUCATE THE PT FOR THE DIET. PT VERBALIZE UNDERSTANDING. ALL SAFETY MEASURES IMPLEMENTED. BED WHEELS ON LOCK, BED IN LOW POSITION AND CALL LIGHT WITHIN REACH.
[2022-03-19] VITALS: BP 101/68
--- NOTE | 2022-03-19 02:00 | NUR ---
PT IS SLEEPING. CHEST RISE AND FALL SYMMETRICALLY NOTED. RESPIRATION IS EVEN AND UNLABORED. ALL SAFETY MEASURES IMPLEMENTED. BED WHEELS ON LOCK, BED IN LOW POSITION AND CALL LIGHT WITHIN REACH.
[2022-03-19] MEDS: NACL 0.9% 1,000 ML IV SCH ×2 (02:50→19:20)
--- NOTE | 2022-03-19 04:00 | NUR ---
CHECKED PT, STILL SLEEPING. CHEST RISE AND FALL SYMMETRICALLY NOTED. RESPIRATION IS EVEN AND UNLABORED SATING AT 96% WITH NORMAL SINUS RHYTHM. ALL SAFETY MEASURES IMPLEMENTED. BED WHEELS ON LOCK, BED IN LOW POSITION AND CALL LIGHT WITHIN REACH.
[2022-03-19 04:01] VITALS: BP 103/67
[2022-03-19 07:09] LABS: T4 (THYROXINE) 6.1 ug/dL (4.5-12.0)
--- NOTE | 2022-03-19 07:12 | NUR ---
PT IS STABLE. ENDORSED PT TO MORNING SHIFT NURSE FOR CONTINUITY OF CARE.
--- NOTE | 2022-03-19 07:30 | NUR ---
RECEIVED REPORT FROM [facility] NURSEWILBER. PT A/O X4. ABLE TO MAKE NEEDS KNOWN. NO SOB OR RESPIRATORY DISTRESS. ON RA. DENIES PAIN AT THIS TIME. NS @ 60 ML/HR ON LFA #22. ALL ITEMS WITHIN REACH. NEEDS ALL MET. ALL SAFETY MEASURES IN PLACE.
[2022-03-19 07:40] LABS: ANION GAP 12.3 (8-16); CARBON DIOXIDE 25.9 mmol/L (21-32); CREATININE 0.9 mg/dL (0.6-1.3); POTASSIUM 4.2 mmol/L (3.5-5.1)
[2022-03-19 07:47] LABS: BASOPHILS % (AUTO) 0.8 % (0.0-2.0); EOSINOPHILS # (AUTO) 0.2 K/uL (0-0.4); EOSINOPHILS % (AUTO) 4.5 % (0.0-4.0); HEMATOCRIT 38.4 % (36-52); HEMOGLOBIN 12.9 g/dL (12.0-18.0); LYMPHOCYTES # (AUTO) 2.3 K/uL (2.0-11.5); LYMPHOCYTES % (AUTO) 47.6 % (20.5-51.1); MEAN CORPUSCULAR HEMOGLOBIN 32 pg (27-31); MEAN CORPUSCULAR HGB CONC 34 g/dL (33-37); MEAN CORPUSCULAR VOLUME 94.9 fL (80-94); MONOCYTES # (AUTO) 0.5 K/uL (0.8-1.0); MONOCYTES % (AUTO) 10.7 % (1.7-9.3); NEUTROPHILS # (AUTO) 1.8 K/uL (1.8-7.7); NEUTROPHILS % (AUTO) 36.4 % (42.2-75.2); PLATELET COUNT (AUTO) 224 K/uL (140-450); RED BLOOD CELL COUNT(AUTO) 4.04 MIL/uL (4.20-6.10); RED CELL DISTRIBUTION WIDTH 14.8 % (11.6-13.7); WHITE BLOOD COUNT (AUTO) 4.8 K/uL (4.8-10.8)
[2022-03-19 08:00] VITALS: BP 94/71
[2022-03-19] MEDS: METOPROLOL 25 MG TAB PO SCH ×2 (08:55→20:06)
[2022-03-19] MEDS: GABAPENTIN 100 MG CAP PO SCH ×3 (08:56→16:32)
[2022-03-19] MEDS ORDERED: predniSONE 20 MG TAB PO SCH (09:00)
[2022-03-19] MEDS ORDERED: PANTOPRAZOLE 40 MG TABEC PO SCH (09:00)
[2022-03-19] MEDS ORDERED: LITHIUM CARBONATE 300 MG TAB PO SCH (09:00)
[2022-03-19] MEDS ORDERED: ECOTRIN 81 MG TABEC PO SCH (09:00)
[2022-03-19] MEDS ORDERED: MAGNESIUM OXIDE 400 MG TAB PO SCH (09:00)
[2022-03-19] MEDS ORDERED: lisinopriL 5 MG TAB PO SCH (09:00)
--- NOTE | 2022-03-19 10:00 | NUR ---
PT STATED LARGE BM LAST NIGHT. REQUESTING SALAD WITH EVERY TRAY DELIVERED. CALLED DIETARY WITH NO PICKUP. SPOKE WITH DIETARY IN PERSON AND REQUESTED SALAD WITH NON-FAT DRESSING WITH EVERY MEAL AND 1 NOW. ORDERS WRITTEN DOWN BY DIETARY. PROVIDED PT WITH SALAD. PT IN NO DISTRESS. NO SOB NOTED. ALL NEEDS MET AT THIS TIME. ALL SAFETY MEASURES IN PLACE.
[2022-03-19] MEDS: HYDROcodone/APAP 5/325 MG 1 TAB TAB PO PRN ×2 (11:00→16:33)
[2022-03-19 12:00] VITALS: BP 104/63
--- NOTE | 2022-03-19 12:00 | NUR ---
DC PLANNING SW MET WITH PT AT BEDSIDE TO COMPLETE ASSESSMENT. PATIENT REPORTS RESIDING AT A [facility] AT THE ADDRESS LISTED ON FILE. PATIENT IDENTIFIED MARK (SISTER) [phone] EMERGENCY CONTACT AND MDM. PATIENT REPORTS BEING [facility] CONNECTED, [facility], [facility], . PATIENT REPORTS LAST VISIT WITH PCP EARLY THIS MONTH. PT REPORTS MEDIATION COMPLIANCE AND REPORTS THAT RX AND MAILED TO THE [facility]. PATIENT REPORTS BEING INDEPENDENT IN ALL ACTIVITIES AND DENIES USE OF DME. PT STRUGGLED TO ANSWER IF HE HAD MENTAL HEALTH HX AND JUST SMILED. PT REPORTS SUBSTANCE USE HX, PRIMARY SUBSTANCE OF CHOICE; ALCOHOL, MARIJUANA, COCAINE AND LSD. PATIENT REPORTS HE HS BEEN SOBER "FOR A QUITE A WHILE". PATIENT DECLINED SUBSTANCE USE RESOURCES. PATIENT REPORTS LIMITED FAMILY SUPPORTS HIS MOTHERS PASSING 6 YRS AGO. PATIENT REPORTS HIS SISTER VISITS WITH HIM MONTHLY AND RESIDES FAIRLY CLOSE. DC PLAN IS FOR PATIENT TO RETURN TO WHEN CLINICALLY STABLE.
[2022-03-19] MEDS: diphenhydrAMINE 50 MG/ML VIAL IVP PRN (13:19)
--- NOTE | 2022-03-19 15:25 | NUR ---
PROVIDED PT WITH 2 SALADS WITH LOW FAT IRANIAN DRESSING PER REQUESTS. PT IN NO DISTRESS. ALL NEEDS MET. ALL SAFETY MEASURES IN PLACE.
[2022-03-19 16:00] VITALS: BP 104/63
[2022-03-19] MEDS: risperiDONE 1 MG TAB PO SCH (16:29)
--- NOTE | 2022-03-19 16:30 | NUR ---
PT RESTLESS. PT C/O ACHING HEADACHE. SEE PAIN ASSESSMENT AND EMAR FOR PAIN ADMINISTRATION.
--- NOTE | 2022-03-19 18:41 | NUR ---
PT ANXIOUS TO LEAVE. CONTACTED DR. BRYANT IF PT WAS CLEARED FOR DISCHARGE FROM HIS STANDPOINT AND DR. BRYANT STATES YES. CONTACTED DR. BINGHAM REGARDING CARDIO CLEARANCE AND DR. BINGHAM WOULD LIKE PT TO STAY ANOTHER NIGHT. WILL LET PT KNOW.
--- NOTE | 2022-03-19 19:07 | NUR ---
REPORT GIVEN TO NIGHTSMTFT NURSEWILBER FOR CONTINUITY OF CARE.
--- NOTE | 2022-03-19 19:08 | NUR ---
RECEIVED PT TO MORNING SHIFT NURSE. PT IS AOX4, AMBULATORY, ABLE TO VERBALIZE NEEDS AND ABLE TO FOLLOW COMMANDS. PT IS ON ROOM AIR AND ON CARDIAC DIET. PT HAS SALINE LOCK ON LEFT FOREARM GAUGE 22 WITH STAND BY NS AT 60. PT WANTS TO DISCONNECT THE NS NOW BECAUSE HE FEEL IRRITATED BY ITCHING BUT THE MORNING NURSE TOLD ME THAT SHE WAS ALREADY GAVE THE PT BENADRYL FOR ITCHING. PT WANTS TO GO HOME AND AGREED TO ME THAT HE WILL STAY FOR 1 NIGHT WHAT DOCTOR'S ORDER. PT SKIN IS INTACT. ALL SAFETY MEASURES IMPLEMENTED. BED WHEELS ON LOCKED, BED IN LOW POSITION AND CALL LIGHT WITHIN REACH
[2022-03-19 20:00] VITALS: BP 105/68
[2022-03-19] MEDS: QUEtiapine FUMARATE 100 MG TAB PO SCH (20:17)
[2022-03-19] MEDS: traZODone 50 MG TAB PO SCH (20:17)
--- NOTE | 2022-03-19 20:43 | NUR ---
PT IS COMPLAINING OF NAUSEA. PRN ANTI-NAUSEA MEDICATION WAS GIVEN TO PT PER MD ORDER. PT TOLERATED IT WELL. ALL SAFETY MEASURES IMPLEMENTED. BED WHEELS ON LOCKED, BED IN LOW POSITION AND CALL LIGHT WITHIN REACH.
[2022-03-19] MEDS ORDERED: ATORVASTATIN 20 MG TAB PO SCH (21:00)
[2022-03-19] MEDS: ZOLPIDEM 5 MG TAB PO PRN (21:45)
--- NOTE | 2022-03-19 21:45 | NUR ---
PT WAS GIVEN SLEEPING MEDICATION PER PT REQUEST. PT TOLERATED IT WELL. ALL SAFETY MEASURES IMPLEMENTED. BED WHEELS ON LOCKED, BED IN LOW POSITION AND CALL LIGHT WITHIN REACH.
[2022-03-20] VITALS: BP 99/58
--- NOTE | 2022-03-20 | NUR ---
PT IS SLEEPING. CHEST RISE AND FALL SYMMETRICALLY NOTED. RESPIRATION IS EVEN AND UNLABORED. NO S/S OF RESPIRATORY DISTRESS. ALL SAFETY MEASURES IMPLEMENTED. BED WHEELS ON LOCKED, BED IN LOW POSITION AND CALL LIGHT WITHIN REACH.
[2022-03-20] MEDS: diphenhydrAMINE 50 MG/ML VIAL IVP PRN (01:49)
--- NOTE | 2022-03-20 01:49 | NUR ---
PT WAS GIVEN BENADRYL PER PT REQUEST. PT TOLERATED IT WELL. ALL SAFETY MEASURES IMPLEMENTED. BED WHEELS ON LOCKED, BED IN LOW POSITION AND CALL LIGHT WITHIN REACH.
[2022-03-20 04:00] VITALS: BP 107/64
[2022-03-20] MEDS: HYDROcodone/APAP 5/325 MG 1 TAB TAB PO PRN (04:04)
--- NOTE | 2022-03-20 04:04 | NUR ---
PT WAS GIVEN PRN PAIN MEDICATION DUE TO BACK PAIN WITH THE PAIN SCALE OF 6/10. ALL SAFETY MEASURES IMPLEMENTED. BED WHEELS ON LOCKED, BED IN LOW POSITION AND CALL LIGHT WITHIN REACH.
--- NOTE | 2022-03-20 07:22 | NUR ---
PT IS STABLE. ENDORSE PT TO MORNING SHIFT NURSE FOR CONTINUITY OF CARE.
--- NOTE | 2022-03-20 07:23 | NUR ---
CONTACTED DR MARCUS REGARDING PT WANTS TO LEAVE AMA, STATED HE WOULD NOT WAIT AND HAS PSYCH DR APPOINTMENT AT 3 AND HAS TO PAY BILLS AND HE WANTS TO GO HOME NOW.
--- NOTE | 2022-03-20 07:23 | NUR ---
RECEIVED BEDSIDE REPORT FROM GRAPHIC ARTIST NURSE, PT AGITATED STATED HE WANTS TO GO HOME. ALERT ORIENTED ABLE TO LET NEEDS KNOWN. PT ON ROOM AIR, IV TO LEFT AC 22G PATENT INTACT, SL. PT REFUSED IV FLUID. INITIAL ASSESSMENT DONE, ALL SAFETY PRECAUTION MET, CALL LIGHT WITHIN REACH, WILL CONTINUE TO MONITOR.
[2022-03-20 07:35] LABS: BASOPHILS % (AUTO) 0.5 % (0.0-2.0); EOSINOPHILS # (AUTO) 0.2 K/uL (0-0.4); EOSINOPHILS % (AUTO) 3.8 % (0.0-4.0); HEMATOCRIT 39.9 % (36-52); HEMOGLOBIN 13.5 g/dL (12.0-18.0); LYMPHOCYTES # (AUTO) 2.4 K/uL (2.0-11.5); LYMPHOCYTES % (AUTO) 44.3 % (20.5-51.1); MEAN CORPUSCULAR HEMOGLOBIN 32 pg (27-31); MEAN CORPUSCULAR HGB CONC 34 g/dL (33-37); MEAN CORPUSCULAR VOLUME 94.1 fL (80-94); MONOCYTES # (AUTO) 0.7 K/uL (0.8-1.0); MONOCYTES % (AUTO) 13.3 % (1.7-9.3); NEUTROPHILS # (AUTO) 2.1 K/uL (1.8-7.7); NEUTROPHILS % (AUTO) 38.1 % (42.2-75.2); PLATELET COUNT (AUTO) 228 K/uL (140-450); RED BLOOD CELL COUNT(AUTO) 4.24 MIL/uL (4.20-6.10); RED CELL DISTRIBUTION WIDTH 14.6 % (11.6-13.7); WHITE BLOOD COUNT (AUTO) 5.5 K/uL (4.8-10.8)
[2022-03-20 08:00] VITALS: BP 111/75
[2022-03-20 08:00] LABS: ANION GAP 15.6 (8-16); CARBON DIOXIDE 22.5 mmol/L (21-32); CREATININE 0.9 mg/dL (0.6-1.3); POTASSIUM 4.1 mmol/L (3.5-5.1)
--- NOTE | 2022-03-20 08:00 | NUR ---
DC PAPERS SIGNED, PT STATED UNDERSTANDING, ALL QUESTIONS ANSWERED, IV TAKEN OUT, CATH INTACT. WRIST BAND TAKEN OFF.
--- NOTE | 2022-03-20 08:15 | NUR ---
WALKED PT TO FRONT LOBBY THEN TO ER LOBBY TO WAIT FOR UBER. PT IN STABLE CONDITION.
--- NOTE | 2022-03-25 13:58 | NUR ---
LATE ENTRY- IV NORMAL SALINE DISCONTINUED AT 0300.
== END 2022-03-20 08:15 | disposition left against medical advice (07) | DRG 205 ==
LOC: MED 18:02 → MTU 03-18 00:04
PROVIDERS: ADMIT Family Medicine; ATTEND Family Medicine
DX: M94.0 Chondrocostal junction syndrome [Tietze] (principal); N17.0 Acute kidney failure with tubular necrosis; J98.11 Atelectasis; E86.0 Dehydration; E78.5 Hyperlipidemia, unspecified; F17.210 Nicotine dependence, cigarettes, uncomplicated; Z20.822 Contact with and (suspected) exposure to COVID-19; F20.9 Schizophrenia, unspecified; G62.9 Polyneuropathy, unspecified; Z90.49 Acquired absence of other specified parts of digestive tract; Z79.899 Other long term (current) drug therapy; Z88.8 Allergy status to other drugs, medicaments and biological substances; Z88.5 Allergy status to narcotic agent
CPT/HCPCS: 36415; 71045; 80048; 80053; 80178; 80305; 81003; 82150; 83036; 83690; 83735; 83880; 83930; 83935; 84100; 84436; 84439; 84443; 84479; 84484; 85025; 85610; 85730; 87081; 93005; 96360; 99285; J1200; J2405

== ENCOUNTER 2022-04-02 11:52 | Emergency (ER) | payer OTHER, MEDICAID ==
[~2022-04-02] VITALS: Ht 185.4 cm; Wt 88.5 kg
[2022-04-02 11:58] VITALS: BP 110/77
--- NOTE | 2022-04-02 13:31 | NUR ---
AMBULATED TO BED 12
--- NOTE | 2022-04-02 13:38 | NUR ---
DIONICIO SWAB COLLECTED AND HANDED TO RUBBER WASHER MATTHEW
--- NOTE | 2022-04-02 13:40 | NUR ---
36 y/o male bib self, c/o abd pain for 1 week, pt states he has also been having n/v with constipation. pt states he had small black stool yesterday and that he vomited blood x1 episode yesterday. pt had an intestinal surgery in 2013 due to obstruction, states his small bowel and colon were removed. pmh:schizophrenia, hypertension, hyperlipidemia allergy: tylenol, hydrocodone, iodine, ketorolac
[2022-04-02 13:51] LABS: BASOPHILS % (AUTO) 0.5 % (0.0-2.0); EOSINOPHILS % (AUTO) 0.5 % (0.0-4.0); HEMATOCRIT 38.8 % (36-52); HEMOGLOBIN 13.4 g/dL (12.0-18.0); LYMPHOCYTES # (AUTO) 0.6 K/uL (2.0-11.5); LYMPHOCYTES % (AUTO) 14.4 % (20.5-51.1); MEAN CORPUSCULAR HEMOGLOBIN 32 pg (27-31); MEAN CORPUSCULAR HGB CONC 35 g/dL (33-37); MEAN CORPUSCULAR VOLUME 93.2 fL (80-94); MONOCYTES # (AUTO) 0.7 K/uL (0.8-1.0); MONOCYTES % (AUTO) 16.4 % (1.7-9.3); NEUTROPHILS % (AUTO) 68.2 % (42.2-75.2); PLATELET COUNT (AUTO) 202 K/uL (140-450); RED BLOOD CELL COUNT(AUTO) 4.16 MIL/uL (4.20-6.10); WHITE BLOOD COUNT (AUTO) 4.4 K/uL (4.8-10.8)
[2022-04-02 14:04] LABS: PROTHROMBIN TIME 10.1 secs (10.8-13.4)
[2022-04-02 14:06] LABS: ANION GAP 18.8 (8-16); CARBON DIOXIDE 20.3 mmol/L (21-32); CREATININE 0.9 mg/dL (0.6-1.3); POTASSIUM 4.1 mmol/L (3.5-5.1); TOTAL BILIRUBIN 0.4 mg/dL (0.0-1.0)
[2022-04-02] MEDS ORDERED: GLYPS RC (14:07)
[2022-04-02] MEDS ORDERED: LACT-103 PO (14:07)
[2022-04-02 15:16] VITALS: BP 111/68
--- NOTE | 2022-04-02 15:19 | NUR ---
Patient discharged with v/s stable. Written and verbal after care instructions given and explained. Patient alert, oriented and verbalized understanding of instructions. Ambulatory with steady gait. All questions addressed prior to discharge. ID band removed. Patient advised to follow up with PMD. Rx of GLYCERIN,LACTULOSE given. Patient educated on indication of medication including possible reaction and side effects. Opportunity to ask questions provided and answered.
== END 2022-04-02 15:19 | disposition home or self-care (01) ==
LOC: MED 11:52
DX: K59.00 Constipation, unspecified (principal); Z20.822 Contact with and (suspected) exposure to COVID-19; F20.9 Schizophrenia, unspecified; E78.5 Hyperlipidemia, unspecified; I10 Essential (primary) hypertension; F17.200 Nicotine dependence, unspecified, uncomplicated; Z79.899 Other long term (current) drug therapy; Z91.040 Latex allergy status; Z79.1 Long term (current) use of non-steroidal anti-inflammatories (NSAID); Z98.890 Other specified postprocedural states
CPT/HCPCS: 36415; 80053; 83690; 85025; 85610; 85730; 86886; 86900; 86901; 99284

== ENCOUNTER 2022-10-07 07:32 | Emergency (ER) | payer OTHER, MEDICAID ==
[~2022-10-07] VITALS: Ht 185.4 cm; Wt 102.1 kg
[~2022-10-07 07:32] MED LIST changes: +GLYPS RC; +LACT-103 PO
[2022-10-07 07:43] VITALS: BP 120/78
--- NOTE | 2022-10-07 07:56 | NUR ---
PT STATES THAT HE'S "GONNA HAVE SOME SMOKES REAL QUICK" AND THAT HE'S "GONNA CHILL IN THE PARKING LOT"
[2022-10-07 09:02] VITALS: BP 124/86
--- NOTE | 2022-10-07 09:02 | NUR ---
Patient discharged with v/s stable. Written and verbal after care instructions ABOUT FOOT SPRAIN given and explained. Patient verbalized understanding. Ambulatory with steady gait. All questions addressed prior to discharge. Advised to follow up with PMD.
== END 2022-10-07 09:02 | disposition home or self-care (01) ==
LOC: MED 07:32
DX: S99.921A Unspecified injury of right foot, initial encounter (principal); I10 Essential (primary) hypertension; Z88.5 Allergy status to narcotic agent; Z79.1 Long term (current) use of non-steroidal anti-inflammatories (NSAID); Z79.899 Other long term (current) drug therapy; Z91.040 Latex allergy status; X58.XXXA Exposure to other specified factors, initial encounter; Y93.89 Activity, other specified; Y92.89 Other specified places as the place of occurrence of the external cause; Y99.8 Other external cause status
CPT/HCPCS: 73610; 73630; 99284

== ENCOUNTER 2022-10-09 18:59 | Emergency (ER) | payer OTHER, MEDICAID ==
[~2022-10-09] VITALS: Ht 185.4 cm; Wt 102.1 kg
[2022-10-09 19:17] VITALS: BP 116/74
[2022-10-09 19:36] LABS: BASOPHILS % (AUTO) 0.6 % (0.0-2.0); EOSINOPHILS # (AUTO) 0.2 K/uL (0-0.4); EOSINOPHILS % (AUTO) 3.6 % (0.0-4.0); HEMATOCRIT 36.2 % (36-52); HEMOGLOBIN 12.5 g/dL (12.0-18.0); LYMPHOCYTES # (AUTO) 1.4 K/uL (2.0-11.5); LYMPHOCYTES % (AUTO) 28.6 % (20.5-51.1); MEAN CORPUSCULAR HEMOGLOBIN 33 pg (27-31); MEAN CORPUSCULAR HGB CONC 35 g/dL (33-37); MEAN CORPUSCULAR VOLUME 95.6 fL (80-94); MONOCYTES # (AUTO) 0.5 K/uL (0.8-1.0); MONOCYTES % (AUTO) 10.4 % (1.7-9.3); NEUTROPHILS # (AUTO) 2.8 K/uL (1.8-7.7); NEUTROPHILS % (AUTO) 56.8 % (42.2-75.2); PLATELET COUNT (AUTO) 245 K/uL (140-450); RED BLOOD CELL COUNT(AUTO) 3.78 MIL/uL (4.20-6.10); RED CELL DISTRIBUTION WIDTH 13.4 % (11.6-13.7); WHITE BLOOD COUNT (AUTO) 4.9 K/uL (4.8-10.8)
[2022-10-09 19:49] LABS: ALBUMIN 3.6 g/dL (3.4-5.0); ANION GAP 12.8 (8-16); CARBON DIOXIDE 25.9 mmol/L (21-32); POTASSIUM 3.7 mmol/L (3.5-5.1); TOTAL BILIRUBIN 0.2 mg/dL (0.0-1.0)
[2022-10-09 20:12] VITALS: BP 107/55
--- NOTE | 2022-10-09 20:32 | NUR ---
pt ambulated to the bathroom for urine collection
--- NOTE | 2022-10-09 20:40 | NUR ---
Patient does not wish to proceed with medical care recommended by Dr. Rico. Patient given information related to possible complications, up to and including , which could occur as a result of leaving hospital at this time. Patient verbalizes understanding of risks involved leaving against medical advice. Patient has signed AMA form.
[2022-10-09 21:15] LABS: APPEARANCE,URINE CLEAR (CLEAR); BILIRUBIN,URINE NEGATIVE (NEGATIVE); BLOOD, URINE NEGATIVE (NEGATIVE); COLOR,URINE YELLOW (YELLOW); LEUKOCYTE ESTERASE ,URINE NEGATIVE (NEGATIVE); NITRITE, URINE NEGATIVE (NEGATIVE); UGLUCOSE NEGATIVE (NEGATIVE)
== END 2022-10-09 20:40 | disposition left against medical advice (07) ==
LOC: MED 18:59
DX: K62.5 Hemorrhage of anus and rectum (principal); R10.31 Right lower quadrant pain; I10 Essential (primary) hypertension; F17.210 Nicotine dependence, cigarettes, uncomplicated; F12.90 Cannabis use, unspecified, uncomplicated; Z98.890 Other specified postprocedural states; Z79.899 Other long term (current) drug therapy; Z88.5 Allergy status to narcotic agent; Z88.6 Allergy status to analgesic agent; Z88.8 Allergy status to other drugs, medicaments and biological substances
CPT/HCPCS: 36415; 80053; 81003; 83690; 85025; 99283

== ENCOUNTER 2022-10-12 13:11 | Emergency (ER) | payer OTHER, MEDICAID ==
[~2022-10-12] VITALS: Ht 185.4 cm; Wt 102.1 kg
[2022-10-12 13:16] VITALS: BP 116/95
--- NOTE | 2022-10-12 13:22 | NUR ---
triage done, ua obtained, pt back to lobby at this time
--- NOTE | 2022-10-12 14:15 | NUR ---
PT CALLED FOR CT X2 IN LOBBY, NO ASNWER PER [employer]
[2022-10-12 14:30] LABS: BASOPHILS # (AUTO) 0.1 K/uL (0.00-0.22); BASOPHILS % (AUTO) 0.9 % (0.0-2.0); EOSINOPHILS # (AUTO) 0.1 K/uL (0-0.4); HEMOGLOBIN 13.2 g/dL (12.0-18.0); LYMPHOCYTES # (AUTO) 1.4 K/uL (2.0-11.5); LYMPHOCYTES % (AUTO) 24.2 % (20.5-51.1); MEAN CORPUSCULAR HEMOGLOBIN 33 pg (27-31); MEAN CORPUSCULAR HGB CONC 35 g/dL (33-37); MEAN CORPUSCULAR VOLUME 95.5 fL (80-94); MONOCYTES # (AUTO) 0.6 K/uL (0.8-1.0); MONOCYTES % (AUTO) 9.6 % (1.7-9.3); NEUTROPHILS # (AUTO) 3.8 K/uL (1.8-7.7); NEUTROPHILS % (AUTO) 64.3 % (42.2-75.2); PLATELET COUNT (AUTO) 288 K/uL (140-450); RED BLOOD CELL COUNT(AUTO) 3.98 MIL/uL (4.20-6.10); RED CELL DISTRIBUTION WIDTH 13.4 % (11.6-13.7); WHITE BLOOD COUNT (AUTO) 5.9 K/uL (4.8-10.8)
[2022-10-12 14:51] LABS: ALBUMIN 4.1 g/dL (3.4-5.0); ANION GAP 13.5 (8-16); CARBON DIOXIDE 26.2 mmol/L (21-32); POTASSIUM 3.7 mmol/L (3.5-5.1); TOTAL BILIRUBIN 0.4 mg/dL (0.0-1.0)
[2022-10-12] MEDS ORDERED: MAGN296S70 PO (15:59)
[2022-10-12] MEDS ORDERED: MIRABULK PO (15:59)
--- NOTE | 2022-10-12 16:28 | NUR ---
no nursing intervention provided for patient.
[2022-10-12 16:29] VITALS: BP 116/95
--- NOTE | 2022-10-12 16:29 | NUR ---
Patient discharged. Written and verbal after care instructions given and explained. Patient alert, oriented and verbalized understanding of instructions. Ambulatory with steady gait. All questions addressed prior to discharge. ID band removed. Patient advised to follow up with PMD. Rx of Magnesium Citrate and Miralax given. Patient educated on indication of medication including possible reaction and side effects. Opportunity to ask questions provided and answered.
== END 2022-10-12 16:29 | disposition home or self-care (01) ==
LOC: MED 13:11
DX: K59.00 Constipation, unspecified (principal); I10 Essential (primary) hypertension; F12.90 Cannabis use, unspecified, uncomplicated; F17.200 Nicotine dependence, unspecified, uncomplicated; Z79.899 Other long term (current) drug therapy; Z88.8 Allergy status to other drugs, medicaments and biological substances; Z88.5 Allergy status to narcotic agent
CPT/HCPCS: 36415; 80053; 83605; 83690; 85025; 99284

== ENCOUNTER 2022-10-18 15:33 | Emergency (ER) | payer OTHER, MEDICAID ==
[~2022-10-18] VITALS: Ht 185.4 cm; Wt 100.2 kg
[~2022-10-18 15:33] MED LIST changes: +MAGN296S70 PO; +MIRABULK PO
[2022-10-18 15:50] VITALS: BP 129/85
[2022-10-18] MEDS ORDERED: ONDANSETRON 4 MG/2 ML VIAL IVP ONE (17:00)
[2022-10-18] MEDS ORDERED: NACL 0.9% 1,000 ML IV ONE (17:00)
[2022-10-18] MEDS ORDERED: MORPHINE SULFATE 4 MG/ML SYR IVP ONE (17:00)
--- NOTE | 2022-10-18 17:05 | NUR ---
PT AMBULATED TO ER BED 8
--- NOTE | 2022-10-18 17:06 | NUR ---
lab at bedside
--- NOTE | 2022-10-18 17:15 | NUR ---
37YO MALE PT C/O RLQ PAIN NAUSEA AND CONSTIPATION X4DAYS. LBM 10/14/22. PAIN AT MOST ON PRESSURE AND STATES S/S TO PREVIOUS BOWEL OBSTRUCTION (2013) .MILD ABQ BLOATING NOTED. NOTES EPISODE OF DARK RED BLEEDING PRIOR TO CONSTIPATION ONSET, DENIES BLEEDING SINCE. DENIES V/D, FEVER, CHILLS, OR TAKING MEDICATION. PT AAOX5, HOB POSITIONED PER COMFORT. HX: SCHIZO ALLERGIES: TYLENOL, HYDROCODONE, IODINE
[2022-10-18 17:22] LABS: BASOPHILS % (AUTO) 0.5 % (0.0-2.0); EOSINOPHILS # (AUTO) 0.1 K/uL (0-0.4); EOSINOPHILS % (AUTO) 1.9 % (0.0-4.0); HEMATOCRIT 40.5 % (36-52); HEMOGLOBIN 13.9 g/dL (12.0-18.0); LYMPHOCYTES # (AUTO) 1.2 K/uL (2.0-11.5); LYMPHOCYTES % (AUTO) 23.2 % (20.5-51.1); MEAN CORPUSCULAR HEMOGLOBIN 33 pg (27-31); MEAN CORPUSCULAR HGB CONC 34 g/dL (33-37); MEAN CORPUSCULAR VOLUME 97.2 fL (80-94); MONOCYTES # (AUTO) 0.5 K/uL (0.8-1.0); NEUTROPHILS # (AUTO) 3.3 K/uL (1.8-7.7); NEUTROPHILS % (AUTO) 64.4 % (42.2-75.2); PLATELET COUNT (AUTO) 317 K/uL (140-450); RED BLOOD CELL COUNT(AUTO) 4.17 MIL/uL (4.20-6.10); RED CELL DISTRIBUTION WIDTH 13.4 % (11.6-13.7); WHITE BLOOD COUNT (AUTO) 5.1 K/uL (4.8-10.8)
--- NOTE | 2022-10-18 17:26 | NUR ---
PT TAKEN TO CT VIA WHEELCHAIR
--- NOTE | 2022-10-18 17:42 | NUR ---
pt brought back via w/c
--- NOTE | 2022-10-18 17:43 | NUR ---
pt swabbed for covid(patrice) walked and handed to lab
[2022-10-18 17:46] LABS: ALBUMIN 4.4 g/dL (3.4-5.0); ANION GAP 18.1 (8-16); CARBON DIOXIDE 18.3 mmol/L (21-32); POTASSIUM 4.4 mmol/L (3.5-5.1); TOTAL BILIRUBIN 0.4 mg/dL (0.0-1.0)
--- NOTE | 2022-10-18 17:59 | NUR ---
The patient's care was reviewed and supervised by JULI RAMOS RN.
--- NOTE | 2022-10-18 18:20 | NUR ---
pt states pain relief. at rest w/ hob positioned per comfort. on site monitor
[2022-10-18] MEDS ORDERED: SODIUM PHOSPHATE 118 ML ENEM RC ONE (19:10)
[2022-10-18] MEDS ORDERED: POLYETHYLENE GLYCOL 17 GM/PKT PO ONE ×2 (19:15→19:55)
--- NOTE | 2022-10-18 19:18 | NUR ---
pt refusing enema. "had a bad experience". MD MADE AWARE
--- NOTE | 2022-10-18 19:19 | NUR ---
unable to complete med rq at this time. pt unable to recall meds
--- NOTE | 2022-10-18 19:26 | NUR ---
REPORT GIVEN TO CHUN NESBITT. TRANSFER OF CARE AT THIS TIME
--- NOTE | 2022-10-18 20:00 | NUR ---
PT ASKING IN THE FOR A SANDWICH. ITEM WAS GIVEN
[2022-10-18] MEDS ORDERED: MIRABULK PO (20:42)
[2022-10-18] MEDS ORDERED: MAGN296S48 PO (20:42)
[2022-10-18 21:00] VITALS: BP 113/63
--- NOTE | 2022-10-18 21:38 | NUR ---
Patient discharged with v/s stable. Written and verbal after care instructions given and explained. Patient alert, oriented and verbalized understanding of instructions. Ambulatory with steady gait. All questions addressed prior to discharge. ID band removed. Patient advised to follow up with PMD. Rx of MAGNESIUM CITRATE AND MIRALAX given. Patient educated on indication of medication including possible reaction and side effects. Opportunity to ask questions provided and answered. PT LEFT WITH HIS BELONGINGS.
== END 2022-10-18 21:00 | disposition home or self-care (01) ==
LOC: MED 15:33
DX: R10.84 Generalized abdominal pain (principal); Z20.822 Contact with and (suspected) exposure to COVID-19; I10 Essential (primary) hypertension; Z88.5 Allergy status to narcotic agent; Z88.8 Allergy status to other drugs, medicaments and biological substances; Z79.1 Long term (current) use of non-steroidal anti-inflammatories (NSAID); Z91.040 Latex allergy status; Z79.899 Other long term (current) drug therapy
CPT/HCPCS: 36415; 74176; 80053; 83605; 83690; 85025; 87426; 96361; 96374; 96375; 99285; J2270; J2405; J7030

== ENCOUNTER 2022-10-24 19:20 | Emergency (ER) | payer OTHER, MEDICAID ==
[~2022-10-24] VITALS: Ht 185.4 cm; Wt 98.9 kg
[~2022-10-24 19:20] MED LIST changes: +MAGN296S48 PO
[2022-10-24 19:37] VITALS: BP 120/93
[2022-10-24 22:26] LABS: BASOPHILS % (AUTO) 0.8 % (0.0-2.0); EOSINOPHILS # (AUTO) 0.1 K/uL (0-0.4); EOSINOPHILS % (AUTO) 2.5 % (0.0-4.0); HEMATOCRIT 38.6 % (36-52); HEMOGLOBIN 13.1 g/dL (12.0-18.0); LYMPHOCYTES # (AUTO) 1.4 K/uL (2.0-11.5); LYMPHOCYTES % (AUTO) 25.6 % (20.5-51.1); MEAN CORPUSCULAR HEMOGLOBIN 33 pg (27-31); MEAN CORPUSCULAR HGB CONC 34 g/dL (33-37); MEAN CORPUSCULAR VOLUME 98.2 fL (80-94); MONOCYTES # (AUTO) 0.6 K/uL (0.8-1.0); MONOCYTES % (AUTO) 11.5 % (1.7-9.3); NEUTROPHILS # (AUTO) 3.3 K/uL (1.8-7.7); NEUTROPHILS % (AUTO) 59.6 % (42.2-75.2); PLATELET COUNT (AUTO) 251 K/uL (140-450); RED BLOOD CELL COUNT(AUTO) 3.93 MIL/uL (4.20-6.10); RED CELL DISTRIBUTION WIDTH 13.4 % (11.6-13.7); WHITE BLOOD COUNT (AUTO) 5.5 K/uL (4.8-10.8)
[2022-10-24 22:48] LABS: ALBUMIN 4.1 g/dL (3.4-5.0); ANION GAP 13.6 (8-16); CARBON DIOXIDE 21.8 mmol/L (21-32); CREATININE 0.9 mg/dL (0.6-1.3); POTASSIUM 4.4 mmol/L (3.5-5.1); TOTAL BILIRUBIN 0.3 mg/dL (0.0-1.0)
[2022-10-24 23:56] VITALS: BP 128/65
--- NOTE | 2022-10-24 23:56 | NUR ---
Patient discharged with v/s stable. Written and verbal after care instructions given and explained. Patient verbalized understanding. Ambulatory with steady gait. All questions addressed prior to discharge. Advised to follow up with PMD.
--- NOTE | 2022-10-24 23:56 | NUR ---
Pt seen and evaluated by [facility]
== END 2022-10-24 23:56 | disposition home or self-care (01) ==
LOC: MED 19:20
DX: K60.2 Anal fissure, unspecified (principal); I10 Essential (primary) hypertension; Z88.5 Allergy status to narcotic agent; Z79.1 Long term (current) use of non-steroidal anti-inflammatories (NSAID); Z88.8 Allergy status to other drugs, medicaments and biological substances; Z91.040 Latex allergy status; Z79.899 Other long term (current) drug therapy; Z98.890 Other specified postprocedural states
CPT/HCPCS: 36415; 80053; 83605; 85025; 87040; 99284

== ENCOUNTER 2023-01-01 01:10 | Emergency (ER) | payer OTHER, MEDICAID ==
[~2023-01-01] VITALS: Ht 185.4 cm; Wt 103.9 kg
[2023-01-01 01:15] VITALS: BP 124/63; PULSE 102; RESP 20; TEMP 97.5; O2SAT 96
--- NOTE | 2023-01-01 01:21 | NUR ---
TO LOBBY FOLLOWING TRIAGE
[2023-01-01] MEDS ORDERED: MORPHINE SULFATE 4 MG/ML SYR IVP ONE (04:10)
[2023-01-01] MEDS ORDERED: NACL 0.9% 1,000 ML IV ONE (04:10)
--- NOTE | 2023-01-01 05:00 | NUR ---
Pt taken to CT
--- NOTE | 2023-01-01 05:03 | NUR ---
Labs collected sent to lab
[2023-01-01 05:20] LABS: BASOPHILS % (AUTO) 0.4 % (0.0-2.0); EOSINOPHILS # (AUTO) 0.1 K/uL (0-0.4); EOSINOPHILS % (AUTO) 1.5 % (0.0-4.0); HEMATOCRIT 40.4 % (36-52); HEMOGLOBIN 13.8 g/dL (12.0-18.0); LYMPHOCYTES # (AUTO) 1.9 K/uL (2.0-11.5); MEAN CORPUSCULAR HEMOGLOBIN 32 pg (27-31); MEAN CORPUSCULAR HGB CONC 34 g/dL (33-37); MEAN CORPUSCULAR VOLUME 94.4 fL (80-94); MONOCYTES # (AUTO) 0.8 K/uL (0.8-1.0); MONOCYTES % (AUTO) 12.6 % (1.7-9.3); NEUTROPHILS # (AUTO) 3.7 K/uL (1.8-7.7); NEUTROPHILS % (AUTO) 56.5 % (42.2-75.2); PLATELET COUNT (AUTO) 291 K/uL (140-450); RED BLOOD CELL COUNT(AUTO) 4.28 MIL/uL (4.20-6.10); RED CELL DISTRIBUTION WIDTH 13.7 % (11.6-13.7); WHITE BLOOD COUNT (AUTO) 6.6 K/uL (4.8-10.8)
[2023-01-01 05:49] LABS: ALBUMIN 4.2 g/dL (3.4-5.0); CARBON DIOXIDE 24.3 mmol/L (21-32); CREATININE 0.9 mg/dL (0.6-1.3); POTASSIUM 4.3 mmol/L (3.5-5.1); TOTAL BILIRUBIN 0.3 mg/dL (0.0-1.0)
[2023-01-01 06:20] LABS: APPEARANCE,URINE CLEAR (CLEAR); BILIRUBIN,URINE NEGATIVE (NEGATIVE); BLOOD, URINE NEGATIVE (NEGATIVE); COLOR,URINE YELLOW (YELLOW); LEUKOCYTE ESTERASE ,URINE NEGATIVE (NEGATIVE); NITRITE, URINE NEGATIVE (NEGATIVE); UGLUCOSE NEGATIVE (NEGATIVE)
--- NOTE | 2023-01-01 07:24 | NUR ---
REPORT RECEIVED FROM ANTONIO NESBITT. ASSUMED CARE AT THIS TIME
--- NOTE | 2023-01-01 07:39 | NUR ---
pt at rest w/ eyes closed. respirations even and unlabored. on pvc monitor.
[2023-01-01 07:54] VITALS: O2SAT 96
[2023-01-01] MEDS ORDERED: MAGN296S70 PO (08:36)
[2023-01-01] MEDS ORDERED: MIRABULK PO (08:36)
[2023-01-01 08:45] VITALS: BP 124/70; PULSE 74; RESP 17; O2SAT 98
--- NOTE | 2023-01-01 08:46 | NUR ---
Patient discharged with v/s stable. Written and verbal after care instructions given and explained. Patient alert, oriented and verbalized understanding of instructions. Ambulatory with steady gait. All questions addressed prior to discharge. ID band removed. Patient advised to follow up with PMD. Rx of MAGNESIUM CITRATE,MIRALAX given. Patient educated on indication of medication including possible reaction and side effects. Opportunity to ask questions provided and answered.
== END 2023-01-01 08:45 | disposition home or self-care (01) ==
LOC: MED 01:10
DX: R10.31 Right lower quadrant pain (principal); R50.9 Fever, unspecified; R11.0 Nausea; I10 Essential (primary) hypertension; Z88.5 Allergy status to narcotic agent; Z88.6 Allergy status to analgesic agent; Z88.8 Allergy status to other drugs, medicaments and biological substances; Z79.899 Other long term (current) drug therapy
CPT/HCPCS: 36415; 74176; 80053; 81003; 83605; 85025; 87040; 96374; 99285; J2270; J7030

== ENCOUNTER 2023-01-29 16:18 | Emergency (ER) | payer OTHER, MEDICAID ==
[~2023-01-29] VITALS: Ht 185.4 cm; Wt 101.6 kg
[2023-01-29 16:24] VITALS: BP 125/83; PULSE 100; RESP 20; TEMP 98.7; O2SAT 97
[2023-01-29] MEDS ORDERED: POLYETHYLENE GLYCOL 17 GM/PKT PO ONE (16:50)
[2023-01-29] MEDS ORDERED: DOCUSATE SODIUM 100 MG GELCAP PO PRN (16:50)
[2023-01-29] MEDS ORDERED: LACTULOSE 20 GM/30 ML UDC PO ONE (16:50)
[2023-01-29 16:57] LABS: EOSINOPHILS # (AUTO) 0.1 K/uL (0-0.4); EOSINOPHILS % (AUTO) 2.5 % (0.0-4.0); LYMPHOCYTES # (AUTO) 1.3 K/uL (2.0-11.5); LYMPHOCYTES % (AUTO) 34.1 % (20.5-51.1); MEAN CORPUSCULAR HEMOGLOBIN 33 pg (27-31); MEAN CORPUSCULAR HGB CONC 34 g/dL (33-37); MEAN CORPUSCULAR VOLUME 96.1 fL (80-94); MONOCYTES # (AUTO) 0.4 K/uL (0.8-1.0); MONOCYTES % (AUTO) 11.8 % (1.7-9.3); NEUTROPHILS # (AUTO) 1.9 K/uL (1.8-7.7); NEUTROPHILS % (AUTO) 50.6 % (42.2-75.2); PLATELET COUNT (AUTO) 215 K/uL (140-450); RED BLOOD CELL COUNT(AUTO) 3.64 MIL/uL (4.20-6.10); RED CELL DISTRIBUTION WIDTH 13.7 % (11.6-13.7); WHITE BLOOD COUNT (AUTO) 3.8 K/uL (4.8-10.8)
[2023-01-29 17:39] LABS: ALBUMIN 3.6 g/dL (3.4-5.0); ANION GAP 15.7 (8-16); CARBON DIOXIDE 19.6 mmol/L (21-32); CREATININE 0.9 mg/dL (0.6-1.3); POTASSIUM 3.3 mmol/L (3.5-5.1); TOTAL BILIRUBIN 0.2 mg/dL (0.0-1.0)
--- NOTE | 2023-01-29 17:57 | NUR ---
Pt bibs for constipation and abd pain. Last bowel movement was two days ago. Has had constipation issues before. Pt states he "shouldn't have ate that damn macaroni salad. Its the spices." Pt is a/o x 4, vss, on ss of acute distress, breathing equal and unlabored, speech clear. Medicated as ordered, tolerating well. Pt is currently at radiology.
[2023-01-29 18:27] LABS: BARBITURATE, URINE NEGATIVE ng/ml (NEG <=200); BENZODIAZEPINE, URINE NEGATIVE ng/mL (NEG <=200); CANNABINOID, URINE NEGATIVE ng/mL (NEG <=50); COCAINE, URINE NEGATIVE ng/mL (NEG <=300); OPIATE, URINE NEGATIVE ng/mL (NEG <=2000); PHENCYCLIDINE SCREEN,URINE NEGATIVE ng/mL (NEG <=25)
[2023-01-29 18:58] LABS: APPEARANCE,URINE CLEAR (CLEAR); BILIRUBIN,URINE NEGATIVE (NEGATIVE); BLOOD, URINE NEGATIVE (NEGATIVE); COLOR,URINE YELLOW (YELLOW); LEUKOCYTE ESTERASE ,URINE NEGATIVE (NEGATIVE); NITRITE, URINE NEGATIVE (NEGATIVE); UGLUCOSE NEGATIVE (NEGATIVE)
[2023-01-29] MEDS ORDERED: MAGN100T16 PO (19:12)
[2023-01-29] MEDS ORDERED: MIRABULK PO (19:12)
[2023-01-29] MEDS ORDERED: DOCU-299 PO (19:12)
[2023-01-29 19:28] VITALS: BP 101/75; PULSE 70; RESP 16; TEMP 98.7; O2SAT 99
--- NOTE | 2023-01-29 19:28 | NUR ---
Patient discharged with v/s stable. Written and verbal after care instructions given and explained. New rx colace, magnesium citrate, miralax. Patient verbalized understanding. Ambulatory with steady gait. All questions addressed prior to discharge. Advised to follow up with PMD.
== END 2023-01-29 19:28 | disposition home or self-care (01) ==
LOC: MED 16:18
DX: K59.00 Constipation, unspecified (principal); R11.0 Nausea; Z88.5 Allergy status to narcotic agent; Z88.6 Allergy status to analgesic agent; Z88.8 Allergy status to other drugs, medicaments and biological substances; Z79.899 Other long term (current) drug therapy; Z98.890 Other specified postprocedural states
CPT/HCPCS: 36415; 74022; 80053; 80305; 81003; 83690; 85025; 99284; 99285

== ENCOUNTER 2023-02-01 20:29 | Emergency (ER) | payer OTHER, MEDICAID ==
[~2023-02-01] VITALS: Ht 182.9 cm; Wt 101.2 kg
[~2023-02-01 20:29] MED LIST changes: +DOCU-299 PO; +MAGN100T16 PO
[2023-02-01 20:47] VITALS: BP 123/75; PULSE 100; RESP 18; TEMP 97.7; O2SAT 98
[2023-02-01] MEDS ORDERED: PSYL575P2 PO (21:08)
[2023-02-01] MEDS ORDERED: MAGN296S48 PO (21:08)
--- NOTE | 2023-02-01 21:24 | NUR ---
37 yo/m presents to ED w c/o R sided abdominal pain 04/07 x24 hours tight non-rad constant + constipation x2 days . denies fevers, chills, n/v/d. pmh: high chol, schizo allergies: tylenol, vicodin, iodine, lortab
--- NOTE | 2023-02-01 21:34 | NUR ---
PT TAKEN TO CT
--- NOTE | 2023-02-01 23:05 | NUR ---
PT UP FOR DISCHARGE PT WAS SLEEPING IN BED REPORTS HE IS FEELING BETTER NO PAIN AT THIS TIME. PENDING UBER FROM HOUSE SUP.
--- NOTE | 2023-02-01 23:10 | NUR ---
Patient discharged with v/s stable. Written and verbal after care instructions given and explained. Patient alert, oriented and verbalized understanding of instructions. Ambulatory with steady gait. All questions addressed prior to discharge. ID band removed. Patient advised to follow up with PMD. Rx of CITROMA, PSYLLIUM HUSK given. Patient educated on indication of medication including possible reaction and side effects. Opportunity to ask questions provided and answered.
[2023-02-01 23:11] VITALS: BP 95/58; PULSE 80; RESP 16; TEMP 97.7; O2SAT 99
== END 2023-02-01 23:10 | disposition home or self-care (01) ==
LOC: MED 20:29
DX: K59.09 Other constipation (principal); Z88.5 Allergy status to narcotic agent; Z88.8 Allergy status to other drugs, medicaments and biological substances; Z91.040 Latex allergy status; Z79.1 Long term (current) use of non-steroidal anti-inflammatories (NSAID)
CPT/HCPCS: 99284

== ENCOUNTER 2023-02-09 19:40 | Emergency (ER) | payer OTHER, MEDICAID ==
[~2023-02-09] VITALS: Ht 180.3 cm; Wt 108.4 kg
[~2023-02-09 19:40] MED LIST changes: +PSYL575P2 PO
[2023-02-09 20:21] VITALS: BP 116/76; PULSE 95; RESP 20; TEMP 98; O2SAT 98
[2023-02-09 21:17] LABS: BASOPHILS % (AUTO) 0.4 % (0.0-2.0); EOSINOPHILS # (AUTO) 0.1 K/uL (0-0.4); EOSINOPHILS % (AUTO) 1.2 % (0.0-4.0); HEMATOCRIT 37.4 % (36-52); HEMOGLOBIN 12.7 g/dL (12.0-18.0); LYMPHOCYTES # (AUTO) 1.5 K/uL (2.0-11.5); LYMPHOCYTES % (AUTO) 27.1 % (20.5-51.1); MEAN CORPUSCULAR HEMOGLOBIN 33 pg (27-31); MEAN CORPUSCULAR HGB CONC 34 g/dL (33-37); MONOCYTES # (AUTO) 0.6 K/uL (0.8-1.0); MONOCYTES % (AUTO) 10.8 % (1.7-9.3); NEUTROPHILS # (AUTO) 3.4 K/uL (1.8-7.7); NEUTROPHILS % (AUTO) 60.5 % (42.2-75.2); PLATELET COUNT (AUTO) 242 K/uL (140-450); RED CELL DISTRIBUTION WIDTH 13.7 % (11.6-13.7); WHITE BLOOD COUNT (AUTO) 5.6 K/uL (4.8-10.8)
[2023-02-09 21:30] LABS: ALBUMIN 3.9 g/dL (3.4-5.0); ANION GAP 13.5 (8-16); CALCIUM 8.9 mg/dL (8.5-10.1); CARBON DIOXIDE 26.7 mmol/L (21-32); CREATININE 1.1 mg/dL (0.6-1.3); POTASSIUM 4.2 mmol/L (3.5-5.1); TOTAL BILIRUBIN 0.3 mg/dL (0.0-1.0); TOTAL PROTEIN, SERUM 7.4 g/dL (6.4-8.2)
[2023-02-09 21:37] LABS: APPEARANCE,URINE CLEAR (CLEAR); BILIRUBIN,URINE NEGATIVE (NEGATIVE); BLOOD, URINE NEGATIVE (NEGATIVE); COLOR,URINE YELLOW (YELLOW); LEUKOCYTE ESTERASE ,URINE NEGATIVE (NEGATIVE); NITRITE, URINE NEGATIVE (NEGATIVE); PH,URINE 5.5 (5.0-9.0); PROTEIN,URINE NEGATIVE (NEGATIVE); UGLUCOSE NEGATIVE (NEGATIVE); UROBILINOGEN,URINE 0.2 EU/dL (0.2 - 1)
[2023-02-09] MEDS ORDERED: ONDANSETRON 4 MG ODT PO ONE (22:10)
[2023-02-09] MEDS ORDERED: DICYCLOMINE 20 MG/2 ML VIAL IM ONE (22:10)
[2023-02-09 22:26] LABS: AMPHETAMINE, URINE NEGATIVE ng/ml (NEG <=1000); BARBITURATE, URINE NEGATIVE ng/ml (NEG <=200); BENZODIAZEPINE, URINE NEGATIVE ng/mL (NEG <=200); CANNABINOID, URINE NEGATIVE ng/mL (NEG <=50); COCAINE, URINE NEGATIVE ng/mL (NEG <=300); OPIATE, URINE NEGATIVE ng/mL (NEG <=2000); PHENCYCLIDINE SCREEN,URINE NEGATIVE ng/mL (NEG <=25)
[2023-02-09] MEDS ORDERED: BEN10 PO (22:54)
[2023-02-09 23:35] VITALS: BP 102/71; PULSE 78; RESP 15; O2SAT 98
== END 2023-02-09 23:31 | disposition home or self-care (01) ==
LOC: MED 19:40
DX: R10.31 Right lower quadrant pain (principal); I10 Essential (primary) hypertension; Z88.5 Allergy status to narcotic agent; Z88.8 Allergy status to other drugs, medicaments and biological substances; Z79.1 Long term (current) use of non-steroidal anti-inflammatories (NSAID); Z91.040 Latex allergy status; Z79.899 Other long term (current) drug therapy
CPT/HCPCS: 36415; 74018; 80053; 80305; 81003; 83690; 85025; 96372; 99284; G0482; J0500; Q0162

== ENCOUNTER 2023-02-19 13:04 | Emergency (ER) | payer OTHER, MEDICAID ==
[~2023-02-19] VITALS: Ht 180.3 cm; Wt 108.4 kg
[~2023-02-19 13:04] MED LIST changes: +BEN10 PO
[2023-02-19 13:23] VITALS: BP 144/80; PULSE 108; RESP 20; TEMP 98; O2SAT 95
[2023-02-19] MEDS ORDERED: KETOROLAC 60 MG/2 ML VIAL IM ONE (15:30)
[2023-02-19 16:20] VITALS: BP 144/80; PULSE 108; RESP 20; TEMP 98; O2SAT 95
== END 2023-02-19 15:37 | disposition home or self-care (01) ==
LOC: MED 13:04
DX: R07.9 Chest pain, unspecified (principal); I10 Essential (primary) hypertension; Z79.899 Other long term (current) drug therapy; Z88.5 Allergy status to narcotic agent; Z88.6 Allergy status to analgesic agent; Z88.8 Allergy status to other drugs, medicaments and biological substances
CPT/HCPCS: 71045; 93005; 96372; 99283; J1885

== ENCOUNTER 2023-03-06 19:42 | Emergency (ER) | payer OTHER, MEDICAID ==
[~2023-03-06] VITALS: Ht 180.3 cm; Wt 108.4 kg
[2023-03-06 20:01] VITALS: BP 142/86; PULSE 94; RESP 18; TEMP 97.4
[2023-03-06] MEDS ORDERED: ONDANSETRON 4 MG ODT PO ONE (20:15)
[2023-03-06 20:48] LABS: BASOPHILS % (AUTO) 0.5 % (0.0-2.0); EOSINOPHILS # (AUTO) 0.1 K/uL (0-0.4); EOSINOPHILS % (AUTO) 0.8 % (0.0-4.0); HEMATOCRIT 39.9 % (36-52); HEMOGLOBIN 13.6 g/dL (12.0-18.0); LYMPHOCYTES # (AUTO) 1.5 K/uL (2.0-11.5); LYMPHOCYTES % (AUTO) 22.4 % (20.5-51.1); MEAN CORPUSCULAR HEMOGLOBIN 33 pg (27-31); MEAN CORPUSCULAR HGB CONC 34 g/dL (33-37); MEAN CORPUSCULAR VOLUME 95.8 fL (80-94); MONOCYTES # (AUTO) 0.7 K/uL (0.8-1.0); MONOCYTES % (AUTO) 10.2 % (1.7-9.3); NEUTROPHILS # (AUTO) 4.4 K/uL (1.8-7.7); NEUTROPHILS % (AUTO) 66.1 % (42.2-75.2); PLATELET COUNT (AUTO) 329 K/uL (140-450); RED BLOOD CELL COUNT(AUTO) 4.17 MIL/uL (4.20-6.10); RED CELL DISTRIBUTION WIDTH 13.6 % (11.6-13.7); WHITE BLOOD COUNT (AUTO) 6.6 K/uL (4.8-10.8)
[2023-03-06 21:13] LABS: ALBUMIN 4.6 g/dL (3.4-5.0); ANION GAP 16.7 (8-16); CALCIUM 9.6 mg/dL (8.5-10.1); CARBON DIOXIDE 20.9 mmol/L (21-32); CREATININE 1.2 mg/dL (0.6-1.3); POTASSIUM 3.6 mmol/L (3.5-5.1); TOTAL PROTEIN, SERUM 8.2 g/dL (6.4-8.2)
[2023-03-06 21:45] VITALS: BP 142/86; PULSE 94; RESP 18; TEMP 97.4
== END 2023-03-06 21:45 | disposition left against medical advice (07) ==
LOC: MED 19:42
DX: R11.10 Vomiting, unspecified (principal); Z53.21 Procedure and treatment not carried out due to patient leaving prior to being seen by health care provider
CPT/HCPCS: 36415; 80053; 83690; 85025; 99281

== ENCOUNTER 2023-05-23 14:36 | Emergency (ER) | payer OTHER, MEDICAID ==
[~2023-05-23] VITALS: Ht 177.8 cm; Wt 72.6 kg
[2023-05-23 14:52] VITALS: BP 116/66; PULSE 92; RESP 18; TEMP 98.7; O2SAT 98
[2023-05-23 15:35] LABS: BASOPHILS % (AUTO) 1.1 % (0.0-2.0); EOSINOPHILS # (AUTO) 0.1 K/uL (0-0.4); EOSINOPHILS % (AUTO) 3.4 % (0.0-4.0); HEMATOCRIT 39.1 % (36-52); HEMOGLOBIN 13.3 g/dL (12.0-18.0); LYMPHOCYTES # (AUTO) 1.1 K/uL (2.0-11.5); LYMPHOCYTES % (AUTO) 34.9 % (20.5-51.1); MEAN CORPUSCULAR HEMOGLOBIN 32 pg (27-31); MEAN CORPUSCULAR HGB CONC 34 g/dL (33-37); MEAN CORPUSCULAR VOLUME 94.7 fL (80-94); MONOCYTES # (AUTO) 0.4 K/uL (0.8-1.0); NEUTROPHILS # (AUTO) 1.6 K/uL (1.8-7.7); NEUTROPHILS % (AUTO) 48.6 % (42.2-75.2); PLATELET COUNT (AUTO) 297 K/uL (140-450); RED BLOOD CELL COUNT(AUTO) 4.13 MIL/uL (4.20-6.10); RED CELL DISTRIBUTION WIDTH 14.1 % (11.6-13.7); WHITE BLOOD COUNT (AUTO) 3.2 K/uL (4.8-10.8)
[2023-05-23 15:47] LABS: ALBUMIN 3.9 g/dL (3.4-5.0); ANION GAP 14.7 (8-16); CALCIUM 8.6 mg/dL (8.5-10.1); CARBON DIOXIDE 23.4 mmol/L (21-32); CREATININE 0.9 mg/dL (0.6-1.3); POTASSIUM 4.1 mmol/L (3.5-5.1); TOTAL BILIRUBIN 0.5 mg/dL (0.0-1.0); TOTAL PROTEIN, SERUM 7.4 g/dL (6.4-8.2)
[2023-05-23 15:50] LABS: LACTIC ACID 0.7 mmol/L (0.4-2.0)
[2023-05-23] MEDS ORDERED: DICYCLOMINE HCL LIQUID 10 MG/5 ML UDC PO ONE (16:25)
[2023-05-23] MEDS ORDERED: ONDA-188 SL (16:25)
[2023-05-23] MEDS ORDERED: ONDANSETRON 4 MG ODT PO ONE (16:25)
[2023-05-23] MEDS ORDERED: AMOXIL/CLAVULANATE 875/125 MG 1 TAB PO ONE (16:25)
[2023-05-23] MEDS ORDERED: AMOX1TAB8 PO (16:25)
[2023-05-23] MEDS ORDERED: BEN10 PO (16:25)
[2023-05-23 16:41] VITALS: BP 116/66; PULSE 92; RESP 18; TEMP 98.7; O2SAT 98
== END 2023-05-23 16:42 | disposition home or self-care (01) ==
LOC: MED 14:36
DX: K52.9 Noninfective gastroenteritis and colitis, unspecified (principal); I10 Essential (primary) hypertension; Z88.5 Allergy status to narcotic agent; Z88.8 Allergy status to other drugs, medicaments and biological substances; Z79.899 Other long term (current) drug therapy; Z90.49 Acquired absence of other specified parts of digestive tract
CPT/HCPCS: 36415; 74176; 80053; 83605; 83690; 85025; 87040; 99284; Q0162

== ENCOUNTER 2023-05-29 17:17 | Emergency (ER) | payer OTHER, MEDICAID ==
[~2023-05-29] VITALS: Ht 172.7 cm; Wt 72.6 kg
[~2023-05-29 17:17] MED LIST changes: +AMOX1TAB8 PO; +ONDA-188 SL
[2023-05-29 17:29] VITALS: BP 106/69; PULSE 98; RESP 18; TEMP 97; O2SAT 98
[2023-05-29 17:50] VITALS: O2SAT 98
[2023-05-29] MEDS ORDERED: MORPHINE SULFATE 4 MG/ML SYR IVP ONE (17:50)
[2023-05-29] MEDS ORDERED: ONDANSETRON 4 MG/2 ML VIAL IVP ONE (17:50)
[2023-05-29 18:23] LABS: BASOPHILS % (AUTO) 0.8 % (0.0-2.0); EOSINOPHILS # (AUTO) 0.1 K/uL (0-0.4); EOSINOPHILS % (AUTO) 2.6 % (0.0-4.0); HEMATOCRIT 38.3 % (36-52); LYMPHOCYTES # (AUTO) 1.3 K/uL (2.0-11.5); LYMPHOCYTES % (AUTO) 33.1 % (20.5-51.1); MEAN CORPUSCULAR HEMOGLOBIN 32 pg (27-31); MEAN CORPUSCULAR HGB CONC 34 g/dL (33-37); MEAN CORPUSCULAR VOLUME 95.5 fL (80-94); MONOCYTES # (AUTO) 0.4 K/uL (0.8-1.0); MONOCYTES % (AUTO) 10.9 % (1.7-9.3); NEUTROPHILS % (AUTO) 52.6 % (42.2-75.2); PLATELET COUNT (AUTO) 232 K/uL (140-450); RED BLOOD CELL COUNT(AUTO) 4.01 MIL/uL (4.20-6.10); RED CELL DISTRIBUTION WIDTH 14.3 % (11.6-13.7); WHITE BLOOD COUNT (AUTO) 3.8 K/uL (4.8-10.8)
[2023-05-29 18:46] LABS: ALBUMIN 3.9 g/dL (3.4-5.0); ANION GAP 15.5 (8-16); CALCIUM 8.6 mg/dL (8.5-10.1); CARBON DIOXIDE 24.1 mmol/L (21-32); CREATININE 0.9 mg/dL (0.6-1.3); POTASSIUM 4.6 mmol/L (3.5-5.1); TOTAL BILIRUBIN 0.2 mg/dL (0.0-1.0); TOTAL PROTEIN, SERUM 7.1 g/dL (6.4-8.2)
== END 2023-05-29 20:20 | disposition home or self-care (01) ==
LOC: MED 17:17
DX: R10.31 Right lower quadrant pain (principal); R11.2 Nausea with vomiting, unspecified; I10 Essential (primary) hypertension; Z88.5 Allergy status to narcotic agent; Z88.8 Allergy status to other drugs, medicaments and biological substances; Z79.899 Other long term (current) drug therapy
CPT/HCPCS: 36415; 74176; 80053; 81002; 83690; 85025; 96374; 96375; 99285; J2270; J2405

== ENCOUNTER 2023-06-01 21:20 | Emergency (ER) | payer OTHER, MEDICAID ==
[~2023-06-01] VITALS: Ht 182.9 cm; Wt 92.1 kg
[2023-06-01 21:57] VITALS: BP 116/71; PULSE 99; RESP 20; TEMP 98; O2SAT 98
[2023-06-01] MEDS ORDERED: KETOROLAC 60 MG/2 ML VIAL IM ONE (23:00)
[2023-06-01] MEDS ORDERED: ONDANSETRON 4 MG ODT PO ONE (23:00)
[2023-06-01] MEDS ORDERED: IBUP-2213 PO (23:22)
[2023-06-01] MEDS ORDERED: MAGN296S70 PO (23:22)
[2023-06-01] MEDS ORDERED: MIRABULK PO (23:22)
[2023-06-01] MEDS ORDERED: ONDA8TAB87 PO (23:22)
[2023-06-02 01:01] VITALS: BP 116/71; PULSE 85; RESP 20; TEMP 98; O2SAT 98
== END 2023-06-02 01:01 | disposition home or self-care (01) ==
LOC: MED 21:20
DX: K59.00 Constipation, unspecified (principal); R11.2 Nausea with vomiting, unspecified; I10 Essential (primary) hypertension; F17.200 Nicotine dependence, unspecified, uncomplicated; Z90.49 Acquired absence of other specified parts of digestive tract; Z98.890 Other specified postprocedural states; Z79.899 Other long term (current) drug therapy; Z79.1 Long term (current) use of non-steroidal anti-inflammatories (NSAID); Z88.8 Allergy status to other drugs, medicaments and biological substances; Z88.5 Allergy status to narcotic agent; Z91.030 Bee allergy status
CPT/HCPCS: 96372; 99283; J1885; Q0162

== ENCOUNTER 2023-06-20 00:24 | Emergency (ER) | payer OTHER, MEDICAID ==
[~2023-06-20] VITALS: Ht 182.9 cm; Wt 90.7 kg
[~2023-06-20 00:24] MED LIST changes: +IBUP-2213 PO; +ONDA8TAB87 PO
[2023-06-20 00:32] VITALS: BP 130/82; PULSE 97; RESP 18; TEMP 97.3; O2SAT 100
[2023-06-20 00:35] VITALS: BP 130/82; PULSE 97; RESP 18; TEMP 97.3
[2023-06-20] MEDS ORDERED: ONDANSETRON 4 MG ODT PO ONE (01:25)
[2023-06-20 01:40] VITALS: O2SAT 100
[2023-06-20] MEDS ORDERED: ONDA-188 SL (01:55)
== END 2023-06-20 02:04 | disposition home or self-care (01) ==
LOC: MED 00:24
DX: R10.9 Unspecified abdominal pain (principal); R11.2 Nausea with vomiting, unspecified; I10 Essential (primary) hypertension; Z88.5 Allergy status to narcotic agent; Z88.8 Allergy status to other drugs, medicaments and biological substances; Z79.899 Other long term (current) drug therapy
CPT/HCPCS: 99283; Q0162

== ENCOUNTER 2023-06-30 17:43 | Emergency (ER) | payer OTHER, MEDICAID ==
[~2023-06-30] VITALS: Ht 182.9 cm; Wt 93.0 kg
[2023-06-30 17:46] VITALS: BP 111/74; PULSE 109; RESP 20; TEMP 96.7; O2SAT 98
[2023-06-30 18:56] LABS: BASOPHILS # (AUTO) 0.1 K/uL (0.00-0.22); BASOPHILS % (AUTO) 1.4 % (0.0-2.0); EOSINOPHILS # (AUTO) 0.1 K/uL (0-0.4); EOSINOPHILS % (AUTO) 2.1 % (0.0-4.0); HEMATOCRIT 38.3 % (36-52); HEMOGLOBIN 13.4 g/dL (12.0-18.0); LYMPHOCYTES # (AUTO) 1.6 K/uL (2.0-11.5); LYMPHOCYTES % (AUTO) 36.7 % (20.5-51.1); MEAN CORPUSCULAR HEMOGLOBIN 33 pg (27-31); MEAN CORPUSCULAR HGB CONC 35 g/dL (33-37); MEAN CORPUSCULAR VOLUME 94.6 fL (80-94); MONOCYTES # (AUTO) 0.5 K/uL (0.8-1.0); MONOCYTES % (AUTO) 10.2 % (1.7-9.3); NEUTROPHILS # (AUTO) 2.2 K/uL (1.8-7.7); NEUTROPHILS % (AUTO) 49.6 % (42.2-75.2); PLATELET COUNT (AUTO) 272 K/uL (140-450); RED BLOOD CELL COUNT(AUTO) 4.05 MIL/uL (4.20-6.10); WHITE BLOOD COUNT (AUTO) 4.5 K/uL (4.8-10.8)
[2023-06-30 19:12] LABS: ALBUMIN 3.8 g/dL (3.4-5.0); ANION GAP 13.5 (8-16); CALCIUM 9.1 mg/dL (8.5-10.1); CARBON DIOXIDE 25.8 mmol/L (21-32); POTASSIUM 4.3 mmol/L (3.5-5.1); TOTAL BILIRUBIN 0.2 mg/dL (0.0-1.0); TOTAL PROTEIN, SERUM 8.7 g/dL (6.4-8.2)
[2023-06-30] MEDS ORDERED: MORPHINE SULFATE 4 MG/ML SYR IVP ONE (20:40)
[2023-07-01] MEDS ORDERED: ONDA-188 SL (02:11)
== END 2023-07-01 02:15 | disposition home or self-care (01) ==
LOC: MED 17:43
DX: R10.31 Right lower quadrant pain (principal); K59.00 Constipation, unspecified; I10 Essential (primary) hypertension; Z90.49 Acquired absence of other specified parts of digestive tract; Z79.899 Other long term (current) drug therapy; Z79.2 Long term (current) use of antibiotics; Z79.1 Long term (current) use of non-steroidal anti-inflammatories (NSAID); Z88.8 Allergy status to other drugs, medicaments and biological substances; Z91.030 Bee allergy status; Z88.5 Allergy status to narcotic agent
CPT/HCPCS: 36415; 74176; 80053; 83690; 85025; 96374; 99285; J2270

== ENCOUNTER 2023-07-05 12:27 | Emergency (ER) | payer OTHER, MEDICAID ==
[~2023-07-05] VITALS: Ht 182.9 cm; Wt 99.8 kg
[2023-07-05 12:40] VITALS: BP 137/88; PULSE 103; RESP 20; TEMP 97.6; O2SAT 96
[2023-07-05 13:23] LABS: BASOPHILS % (AUTO) 0.6 % (0.0-2.0); EOSINOPHILS % (AUTO) 0.8 % (0.0-4.0); HEMATOCRIT 34.8 % (36-52); HEMOGLOBIN 12.2 g/dL (12.0-18.0); LYMPHOCYTES # (AUTO) 1.1 K/uL (2.0-11.5); LYMPHOCYTES % (AUTO) 24.1 % (20.5-51.1); MEAN CORPUSCULAR HEMOGLOBIN 33 pg (27-31); MEAN CORPUSCULAR HGB CONC 35 g/dL (33-37); MEAN CORPUSCULAR VOLUME 94.3 fL (80-94); MONOCYTES # (AUTO) 0.5 K/uL (0.8-1.0); MONOCYTES % (AUTO) 11.7 % (1.7-9.3); NEUTROPHILS # (AUTO) 2.9 K/uL (1.8-7.7); NEUTROPHILS % (AUTO) 62.8 % (42.2-75.2); PLATELET COUNT (AUTO) 242 K/uL (140-450); RED BLOOD CELL COUNT(AUTO) 3.69 MIL/uL (4.20-6.10); WHITE BLOOD COUNT (AUTO) 4.6 K/uL (4.8-10.8)
[2023-07-05 13:35] LABS: ANION GAP 11.3 (8-16); CALCIUM 9.2 mg/dL (8.5-10.1); CARBON DIOXIDE 29.9 mmol/L (21-32); CREATININE 0.9 mg/dL (0.6-1.3); POTASSIUM 4.2 mmol/L (3.5-5.1)
[2023-07-05 13:38] LABS: ALANINE AMINOTRANSFERASE 25 U/L (12-78); ALBUMIN 3.7 g/dL (3.4-5.0); ALKALINE PHOSPHATASE 89 U/L (50-136); ASPARTATE AMINOTRANSFERASE 16 U/L (15-37); BILIRUBIN,DIRECT 0.1 mg/dL (0.0-0.3); TOTAL BILIRUBIN 0.5 mg/dL (0.0-1.0); TOTAL PROTEIN, SERUM 8.1 g/dL (6.4-8.2)
[2023-07-05 13:47] LABS: ALCOHOL, BLOOD < 3 mg/dL (<10)
[2023-07-05 15:01] VITALS: BP 137/88; PULSE 103; RESP 20; TEMP 97.6; O2SAT 96
== END 2023-07-05 14:45 | disposition home or self-care (01) ==
LOC: MED 12:34
DX: F43.0 Acute stress reaction (principal); I10 Essential (primary) hypertension; Z88.5 Allergy status to narcotic agent; Z88.8 Allergy status to other drugs, medicaments and biological substances; Z79.899 Other long term (current) drug therapy
CPT/HCPCS: 36415; 80048; 80076; 85025; 99283; G0482

== ENCOUNTER 2023-07-09 17:40 | Emergency (ER) | payer OTHER, MEDICAID ==
[~2023-07-09] VITALS: Ht 180.3 cm; Wt 79.4 kg
[2023-07-09 17:49] VITALS: BP 111/83; PULSE 108; RESP 20; TEMP 98.1; O2SAT 97
[2023-07-09] MEDS ORDERED: ONDANSETRON 4 MG ODT PO ONE (18:20)
[2023-07-09 19:02] LABS: BASOPHILS % (AUTO) 0.9 % (0.0-2.0); EOSINOPHILS # (AUTO) 0.1 K/uL (0-0.4); EOSINOPHILS % (AUTO) 1.3 % (0.0-4.0); HEMATOCRIT 39.9 % (36-52); HEMOGLOBIN 13.9 g/dL (12.0-18.0); LYMPHOCYTES # (AUTO) 1.2 K/uL (2.0-11.5); LYMPHOCYTES % (AUTO) 25.4 % (20.5-51.1); MEAN CORPUSCULAR HEMOGLOBIN 33 pg (27-31); MEAN CORPUSCULAR HGB CONC 35 g/dL (33-37); MEAN CORPUSCULAR VOLUME 95.2 fL (80-94); MONOCYTES # (AUTO) 0.5 K/uL (0.8-1.0); MONOCYTES % (AUTO) 11.2 % (1.7-9.3); NEUTROPHILS # (AUTO) 2.8 K/uL (1.8-7.7); NEUTROPHILS % (AUTO) 61.2 % (42.2-75.2); PLATELET COUNT (AUTO) 264 K/uL (140-450); RED BLOOD CELL COUNT(AUTO) 4.19 MIL/uL (4.20-6.10); WHITE BLOOD COUNT (AUTO) 4.6 K/uL (4.8-10.8)
[2023-07-09 19:14] LABS: ALBUMIN 4.1 g/dL (3.4-5.0); ANION GAP 16.8 (8-16); CALCIUM 9.4 mg/dL (8.5-10.1); CARBON DIOXIDE 23.5 mmol/L (21-32); CREATININE 1.2 mg/dL (0.6-1.3); POTASSIUM 4.3 mmol/L (3.5-5.1); TOTAL BILIRUBIN 0.2 mg/dL (0.0-1.0); TOTAL PROTEIN, SERUM 9.1 g/dL (6.4-8.2)
[2023-07-09 19:58] LABS: APPEARANCE,URINE CLEAR (CLEAR); BILIRUBIN,URINE NEGATIVE (NEGATIVE); BLOOD, URINE NEGATIVE (NEGATIVE); COLOR,URINE YELLOW (YELLOW); LEUKOCYTE ESTERASE ,URINE NEGATIVE (NEGATIVE); NITRITE, URINE NEGATIVE (NEGATIVE); PROTEIN,URINE 2+ (NEGATIVE); UGLUCOSE NEGATIVE (NEGATIVE); UROBILINOGEN,URINE 0.2 EU/dL (0.2 - 1)
[2023-07-09 20:00] VITALS: O2SAT 97
[2023-07-09 20:37] VITALS: PULSE 80
== END 2023-07-09 20:37 | disposition home or self-care (01) ==
LOC: MED 17:40
DX: R10.9 Unspecified abdominal pain (principal); R11.0 Nausea; I10 Essential (primary) hypertension; Z88.5 Allergy status to narcotic agent; Z88.8 Allergy status to other drugs, medicaments and biological substances; Z79.899 Other long term (current) drug therapy
CPT/HCPCS: 36415; 74176; 80053; 81003; 83690; 85025; 99284; Q0162

== ENCOUNTER 2023-07-10 04:20 | Emergency (ER) | payer OTHER, MEDICAID ==
[~2023-07-10] VITALS: Ht 180.3 cm; Wt 77.1 kg
[2023-07-10 04:20] VITALS: BP 130/72; PULSE 90; RESP 18; TEMP 97.7; O2SAT 97
[2023-07-10] MEDS ORDERED: LORazepam 2 MG/ML VIAL IM ONE (04:25)
[2023-07-10 06:50] VITALS: BP 119/80; PULSE 82; RESP 17; TEMP 97.9; O2SAT 98
== END 2023-07-10 06:50 | disposition home or self-care (01) ==
LOC: MED 04:20
DX: F41.9 Anxiety disorder, unspecified (principal); Z88.5 Allergy status to narcotic agent; Z88.8 Allergy status to other drugs, medicaments and biological substances; Z79.899 Other long term (current) drug therapy
CPT/HCPCS: 96372; 99283; J2060

== ENCOUNTER 2023-07-14 15:51 | Emergency (ER) | payer OTHER, MEDICAID ==
[~2023-07-14] VITALS: Ht 182.9 cm; Wt 91.2 kg
[2023-07-14 16:30] VITALS: BP 119/84; PULSE 105; RESP 18; TEMP 98.9; O2SAT 99
== END 2023-07-14 18:16 | disposition left against medical advice (07) ==
LOC: MED 15:51
DX: R10.9 Unspecified abdominal pain (principal); K92.1 Melena; Z53.21 Procedure and treatment not carried out due to patient leaving prior to being seen by health care provider
CPT/HCPCS: 99281

== ENCOUNTER 2023-07-14 21:42 | Emergency (ER) | payer OTHER, MEDICAID ==
[~2023-07-14] VITALS: Ht 182.9 cm; Wt 91.2 kg
[2023-07-14 21:51] VITALS: BP 121/77; PULSE 98; RESP 16; TEMP 97.9; O2SAT 99
[2023-07-15] MEDS ORDERED: ONDANSETRON 4 MG ODT PO ONE (02:25)
[2023-07-15] MEDS ORDERED: LORazepam 1 MG TAB PO ONE (02:25)
== END 2023-07-15 02:37 | disposition home or self-care (01) ==
LOC: MED 21:42
DX: F41.9 Anxiety disorder, unspecified (principal); R10.9 Unspecified abdominal pain; I10 Essential (primary) hypertension; F12.90 Cannabis use, unspecified, uncomplicated; Z71.6 Tobacco abuse counseling; Z98.890 Other specified postprocedural states; Z79.899 Other long term (current) drug therapy; Z79.1 Long term (current) use of non-steroidal anti-inflammatories (NSAID); Z79.2 Long term (current) use of antibiotics; Z88.8 Allergy status to other drugs, medicaments and biological substances; Z88.5 Allergy status to narcotic agent; Z91.030 Bee allergy status
CPT/HCPCS: 99283; Q0162

== ENCOUNTER 2023-07-21 11:51 | Emergency (ER) | payer OTHER, MEDICAID ==
[~2023-07-21] VITALS: Ht 182.9 cm; Wt 92.5 kg
[2023-07-21 12:32] VITALS: BP 128/79; PULSE 62; RESP 20; TEMP 97.9; O2SAT 99
[2023-07-21 14:36] LABS: BASOPHILS % (AUTO) 0.5 % (0.0-2.0); EOSINOPHILS % (AUTO) 0.3 % (0.0-4.0); HEMATOCRIT 36.2 % (36-52); HEMOGLOBIN 12.7 g/dL (12.0-18.0); LYMPHOCYTES # (AUTO) 1.3 K/uL (2.0-11.5); LYMPHOCYTES % (AUTO) 21.9 % (20.5-51.1); MEAN CORPUSCULAR HEMOGLOBIN 34 pg (27-31); MEAN CORPUSCULAR HGB CONC 35 g/dL (33-37); MEAN CORPUSCULAR VOLUME 95.2 fL (80-94); MONOCYTES # (AUTO) 0.7 K/uL (0.8-1.0); NEUTROPHILS # (AUTO) 3.9 K/uL (1.8-7.7); NEUTROPHILS % (AUTO) 65.3 % (42.2-75.2); PLATELET COUNT (AUTO) 284 K/uL (140-450); RED CELL DISTRIBUTION WIDTH 14.8 % (11.6-13.7)
[2023-07-21 14:49] LABS: CALCIUM 9.4 mg/dL (8.5-10.1); CARBON DIOXIDE 25.7 mmol/L (21-32); CREATININE 0.9 mg/dL (0.6-1.3); POTASSIUM 3.7 mmol/L (3.5-5.1)
[2023-07-21] MEDS ORDERED: MORPHINE SULFATE 4 MG/ML SYR IVP ONE (14:55)
[2023-07-21 14:58] LABS: ALBUMIN 4.2 g/dL (3.4-5.0); BILIRUBIN,DIRECT 0.1 mg/dL (0.0-0.3); TOTAL BILIRUBIN 0.4 mg/dL (0.0-1.0); TOTAL PROTEIN, SERUM 8.9 g/dL (6.4-8.2)
[2023-07-21 16:04] LABS: APPEARANCE,URINE CLEAR (CLEAR); BILIRUBIN,URINE NEGATIVE (NEGATIVE); BLOOD, URINE NEGATIVE (NEGATIVE); COLOR,URINE YELLOW (YELLOW); LEUKOCYTE ESTERASE ,URINE NEGATIVE (NEGATIVE); NITRITE, URINE NEGATIVE (NEGATIVE); PH,URINE 7.5 (5.0-9.0); PROTEIN,URINE NEGATIVE (NEGATIVE); UGLUCOSE NEGATIVE (NEGATIVE); UROBILINOGEN,URINE 0.2 EU/dL (0.2 - 1)
[2023-07-21 18:02] VITALS: BP 120/69; PULSE 69; RESP 19; TEMP 98.1; O2SAT 98
== END 2023-07-21 18:03 | disposition home or self-care (01) ==
LOC: MED 11:51
DX: R10.30 Lower abdominal pain, unspecified (principal); I10 Essential (primary) hypertension; Z90.49 Acquired absence of other specified parts of digestive tract; Z98.890 Other specified postprocedural states; Z79.899 Other long term (current) drug therapy; Z79.1 Long term (current) use of non-steroidal anti-inflammatories (NSAID); Z79.2 Long term (current) use of antibiotics; Z88.5 Allergy status to narcotic agent; Z88.8 Allergy status to other drugs, medicaments and biological substances; Z91.030 Bee allergy status
CPT/HCPCS: 36415; 74176; 80048; 80076; 81003; 83605; 83690; 85025; 96374; 99285; J2270

== ENCOUNTER 2023-07-22 23:19 | Emergency (ER) | payer OTHER, MEDICAID ==
[~2023-07-22] VITALS: Ht 182.9 cm; Wt 59.0 kg
[2023-07-22 23:40] VITALS: BP 117/83; PULSE 104; RESP 19; TEMP 97.8; O2SAT 100
[2023-07-23] MEDS ORDERED: KETOROLAC 30 MG/ML VIAL IM ONE (01:00)
== END 2023-07-23 01:30 | disposition home or self-care (01) ==
LOC: MED 23:19
DX: G89.29 Other chronic pain (principal); R10.13 Epigastric pain; R11.10 Vomiting, unspecified; I10 Essential (primary) hypertension; Z90.49 Acquired absence of other specified parts of digestive tract; Z79.899 Other long term (current) drug therapy; Z79.2 Long term (current) use of antibiotics; Z79.1 Long term (current) use of non-steroidal anti-inflammatories (NSAID); Z88.8 Allergy status to other drugs, medicaments and biological substances; Z88.5 Allergy status to narcotic agent; Z91.030 Bee allergy status
CPT/HCPCS: 99281; J1885

== ENCOUNTER 2023-07-25 12:32 | Emergency (ER) | payer OTHER, MEDICAID ==
[~2023-07-25] VITALS: Ht 182.9 cm; Wt 93.9 kg
[2023-07-25 12:53] VITALS: BP 127/89; PULSE 108; RESP 15; TEMP 98.7; O2SAT 97
[2023-07-25 13:19] VITALS: O2SAT 97
[2023-07-25 13:59] LABS: BASOPHILS % (AUTO) 0.8 % (0.0-2.0); EOSINOPHILS % (AUTO) 0.6 % (0.0-4.0); HEMATOCRIT 38.6 % (36-52); HEMOGLOBIN 13.2 g/dL (12.0-18.0); LYMPHOCYTES % (AUTO) 24.2 % (20.5-51.1); MEAN CORPUSCULAR HEMOGLOBIN 33 pg (27-31); MEAN CORPUSCULAR HGB CONC 34 g/dL (33-37); MEAN CORPUSCULAR VOLUME 97.2 fL (80-94); MONOCYTES # (AUTO) 0.3 K/uL (0.8-1.0); MONOCYTES % (AUTO) 6.7 % (1.7-9.3); NEUTROPHILS # (AUTO) 2.7 K/uL (1.8-7.7); NEUTROPHILS % (AUTO) 67.7 % (42.2-75.2); PLATELET COUNT (AUTO) 292 K/uL (140-450); RED BLOOD CELL COUNT(AUTO) 3.98 MIL/uL (4.20-6.10); RED CELL DISTRIBUTION WIDTH 14.9 % (11.6-13.7); WHITE BLOOD COUNT (AUTO) 3.9 K/uL (4.8-10.8)
[2023-07-25 14:28] LABS: ALBUMIN 3.9 g/dL (3.4-5.0); CALCIUM 9.5 mg/dL (8.5-10.1); CARBON DIOXIDE 21.7 mmol/L (21-32); CREATININE 1.1 mg/dL (0.6-1.3); POTASSIUM 3.7 mmol/L (3.5-5.1); TOTAL BILIRUBIN 0.3 mg/dL (0.0-1.0); TOTAL PROTEIN, SERUM 8.8 g/dL (6.4-8.2)
[2023-07-25] MEDS ORDERED: NACL 0.9% 1,000 ML IV ONE (14:40)
[2023-07-25] MEDS ORDERED: ONDANSETRON 4 MG/2 ML VIAL IVP ONE (14:40)
[2023-07-25] MEDS ORDERED: KETOROLAC 30 MG/ML VIAL IVP ONE (14:55)
[2023-07-25 16:39] LABS: APPEARANCE,URINE CLEAR (CLEAR); BILIRUBIN,URINE NEGATIVE (NEGATIVE); BLOOD, URINE NEGATIVE (NEGATIVE); COLOR,URINE YELLOW (YELLOW); LEUKOCYTE ESTERASE ,URINE NEGATIVE (NEGATIVE); NITRITE, URINE NEGATIVE (NEGATIVE); PROTEIN,URINE NEGATIVE (NEGATIVE); UGLUCOSE NEGATIVE (NEGATIVE); UROBILINOGEN,URINE 0.2 EU/dL (0.2 - 1)
[2023-07-25] MEDS ORDERED: IBUP-2213 PO (17:17)
[2023-07-25] MEDS ORDERED: ONDA8TAB87 PO (17:17)
[2023-07-25] MEDS ORDERED: VIB100 PO (17:17)
[2023-07-25] MEDS ORDERED: cefTRIAXone 500 MG VIAL ONE ×2 (17:22→17:34)
[2023-07-25] MEDS ORDERED: cefTRIAXone 500 MG in LIDOCAINE MPF 1% 1 ML IM ONE (17:35)
[2023-07-25] MEDS ORDERED: LIDOCAINE MPF 1% 5 ML ONE (17:35)
== END 2023-07-25 17:54 | disposition home or self-care (01) ==
LOC: MED 12:32
DX: N39.0 Urinary tract infection, site not specified (principal); I10 Essential (primary) hypertension; F90.9 Attention-deficit hyperactivity disorder, unspecified type; Z79.899 Other long term (current) drug therapy; Z79.1 Long term (current) use of non-steroidal anti-inflammatories (NSAID); Z79.2 Long term (current) use of antibiotics; Z88.5 Allergy status to narcotic agent; Z88.8 Allergy status to other drugs, medicaments and biological substances; Z91.030 Bee allergy status
CPT/HCPCS: 36415; 74176; 80053; 81003; 83690; 85025; 87491; 96361; 96372; 96374; 96375; 99285; J0696; J1885; J2001; J2405; J7030

== ENCOUNTER 2023-08-12 09:48 | Emergency (ER) | payer OTHER, MEDICAID ==
[~2023-08-12] VITALS: Ht 182.9 cm; Wt 95.8 kg
[~2023-08-12 09:48] MED LIST changes: +VIB100 PO
[2023-08-12 10:17] VITALS: BP 122/88; PULSE 99; RESP 20; TEMP 97.7; O2SAT 99
[2023-08-12] MEDS: KETOROLAC 30 MG/ML VIAL IM ONE (11:25)
[2023-08-12] MEDS ORDERED: KETOROLAC 15 MG/ML VIAL ONE (12:53)
[2023-08-12 13:02] LABS: BASOPHILS % (AUTO) 0.7 % (0.0-2.0); EOSINOPHILS % (AUTO) 1.2 % (0.0-4.0); HEMOGLOBIN 12.9 g/dL (12.0-18.0); LYMPHOCYTES # (AUTO) 1.1 K/uL (2.0-11.5); LYMPHOCYTES % (AUTO) 36.8 % (20.5-51.1); MEAN CORPUSCULAR HEMOGLOBIN 33 pg (27-31); MEAN CORPUSCULAR HGB CONC 34 g/dL (33-37); MEAN CORPUSCULAR VOLUME 96.3 fL (80-94); MONOCYTES # (AUTO) 0.5 K/uL (0.8-1.0); MONOCYTES % (AUTO) 16.7 % (1.7-9.3); NEUTROPHILS # (AUTO) 1.3 K/uL (1.8-7.7); NEUTROPHILS % (AUTO) 44.6 % (42.2-75.2); PLATELET COUNT (AUTO) 287 K/uL (140-450); RED BLOOD CELL COUNT(AUTO) 3.94 MIL/uL (4.20-6.10); RED CELL DISTRIBUTION WIDTH 14.7 % (11.6-13.7)
[2023-08-12 13:13] LABS: CARBON DIOXIDE 25.4 mmol/L (21-32); CREATININE 0.7 mg/dL (0.6-1.3); POTASSIUM 4.4 mmol/L (3.5-5.1)
[2023-08-12 13:20] LABS: ALBUMIN 3.9 g/dL (3.4-5.0); BILIRUBIN,DIRECT 0.1 mg/dL (0.0-0.3); TOTAL BILIRUBIN 0.2 mg/dL (0.0-1.0); TOTAL PROTEIN, SERUM 8.6 g/dL (6.4-8.2)
[2023-08-12] MEDS ORDERED: BISA-218 RC (13:40)
[2023-08-12] MEDS ORDERED: POLY17PD72 PO (13:40)
== END 2023-08-12 13:24 | disposition home or self-care (01) ==
LOC: MED 09:48
DX: K56.7 Ileus, unspecified (principal); Z88.5 Allergy status to narcotic agent; Z88.8 Allergy status to other drugs, medicaments and biological substances; Z79.899 Other long term (current) drug therapy
CPT/HCPCS: 36415; 80048; 80076; 83690; 85025; 96372; 99283; J1885

== ENCOUNTER 2023-08-28 21:03 | Emergency (ER) | payer OTHER, MEDICAID ==
[~2023-08-28] VITALS: Ht 182.9 cm; Wt 97.5 kg
[~2023-08-28 21:03] MED LIST changes: +BISA-218 RC; +POLY17PD72 PO
[2023-08-28 21:15] VITALS: BP 118/82; PULSE 78; RESP 17; TEMP 97.8; O2SAT 98
[2023-08-28] MEDS ORDERED: ONDA-188 SL (22:57)
[2023-08-28] MEDS ORDERED: ONDANSETRON 4 MG ODT PO ONE (23:15)
== END 2023-08-28 23:10 | disposition home or self-care (01) ==
LOC: MED 21:03
DX: K59.00 Constipation, unspecified (principal); R11.10 Vomiting, unspecified; R10.9 Unspecified abdominal pain; I10 Essential (primary) hypertension; Z88.8 Allergy status to other drugs, medicaments and biological substances; Z79.899 Other long term (current) drug therapy; Z88.5 Allergy status to narcotic agent
CPT/HCPCS: 74018; 99283

== ENCOUNTER 2023-09-04 21:09 | Emergency (ER) | payer OTHER, MEDICAID ==
[~2023-09-04] VITALS: Ht 182.9 cm; Wt 98.4 kg
[2023-09-04 21:31] VITALS: BP 105/78; PULSE 104; RESP 18; TEMP 98.4; O2SAT 97
[2023-09-05] MEDS ORDERED: ALUMINUM HYD/MAG/SIMETHICONE 30 ML UDC ONE (01:40)
[2023-09-05] MEDS ORDERED: SIMETHICONE 40 MG/0.6 ML ONE (01:43)
[2023-09-05] MEDS: ALUMINUM HYD/MAG/SIMETHICONE 30 ML UDC PO ONE (01:49)
[2023-09-05] MEDS: SIMETHICONE 40 MG/0.6 ML PO ONE (01:49)
[2023-09-05] MEDS ORDERED: ONDA-188 PO (03:55)
[2023-09-05] MEDS ORDERED: NA P135N RC (03:55)
[2023-09-05] MEDS ORDERED: SIME125T14 PO (03:55)
[2023-09-05] MEDS ORDERED: GLYC-107 RC (03:55)
[2023-09-05] MEDS ORDERED: DOCU1TAB73 PO (03:55)
[2023-09-05 04:00] VITALS: BP 118/80; PULSE 81; RESP 18; TEMP 98; O2SAT 98
== END 2023-09-05 04:00 | disposition home or self-care (01) ==
LOC: MED 21:09
DX: K56.41 Fecal impaction (principal); I10 Essential (primary) hypertension; Z98.890 Other specified postprocedural states; Z79.899 Other long term (current) drug therapy; Z88.6 Allergy status to analgesic agent; Z88.5 Allergy status to narcotic agent; Z88.8 Allergy status to other drugs, medicaments and biological substances; Z91.030 Bee allergy status
CPT/HCPCS: 74018; 99283